=== PATIENT | female | born 1975 | race Caucasian/White ===

== ENCOUNTER 2017-03-02 01:47 | Emergency (ER) | payer MEDICAID ==
[2014-05-21 22:11] VITALS: BMI 22.1
[~2017-03-02 01:47] MED LIST: CATAPRES0.1 MG PO; LEXAPRO20 MG PO; PERCOCET 10/3251 TA1 PO; PRINIVIL20 MG PO; SYNTHROID150 MCG PO; ZYVOX600 MG PO
== END 2017-03-02 03:31 | disposition home or self-care (01) ==
LOC: D.ER 01:47
DX: Z76.0 Encounter for issue of repeat prescription (principal); I10 Essential (primary) hypertension; E07.89 Other specified disorders of thyroid

== ENCOUNTER 2017-07-18 21:00 | Emergency (ER) | payer MEDICAID ==
[2014-05-21 22:11] VITALS: BMI 22.1
[2017-07-18 21:37] LABS: HCG URINE NEGATIVE (NEGATIVE)
[2017-07-18 21:44] LABS: UDS - AMPHET NEGATIVE QUAL (NEGATIVE); UDS - BARB NEGATIVE QUAL (NEGATIVE); UDS - BENZO NEGATIVE QUAL (NEGATIVE); UDS - COCAINE NEGATIVE QUAL (NEGATIVE); UDS - METH NEGATIVE QUAL (NEGATIVE); UDS - OPIATE NEGATIVE QUAL (NEGATIVE); UDS - PCP NEGATIVE QUAL (NEGATIVE); UDS - THC NEGATIVE QUAL (NEGATIVE)
[2017-07-18 21:46] LABS: APPEARANCE HAZY (CLEAR); BILIRUBIN NEGATIVE (NEGATIVE); COLOR YELLOW (YELLOW); GLUCOSE NEGATIVE (NEGATIVE); KETONE NEGATIVE (NEGATIVE); LEUKOCYTE ESTERASE TRACE (NEGATIVE); NITRITE POSITIVE (NEGATIVE); PROTEIN NEGATIVE (NEGATIVE); SPECIFIC GRAVITY 1.015 (1.005-1.020); UROBILINOGEN NORMAL (NORMAL)
[2017-07-18 21:47] LABS: BACTERIA MODERATE /hpf (NONE SEEN); MUCUS <1+ /lpf (NONE SEEN); RED CELLS - URINE OCC /hpf (0-5)
[2017-07-18 22:03] LABS: BASOPHILS 0.1 % (0-2); EOSINOPHILS 0.4 % (0-7); HEMATOCRIT 34.6 % (36.0-48.0); HEMOGLOBIN 11.2 g/dL (12-16); IMMATURE GRANULOCYTES 0.4 % (0-5); LYMPHOCYTES 12.2 % (15-50); MCH 27.9 pg (26.0-34.0); MCHC 32.4 g/dL (31.0-37.0); MCV 86.3 fL (80.0-100.0); MEAN PLATELET VOLUME 8.8 fL (7.4-10.4); MONOCYTES 6.9 % (2-11); RBC 4.01 10x6/uL (4.00-5.40); RDW 17.4 % (11.5-14.5); WBC 15.9 10x3/uL (4.8-10.8)
[2017-07-18 22:06] LABS: PLATELET COUNT 311 10x3/uL (130-400)
[2017-07-18 22:18] LABS: ALBUMIN 3.5 g/dL (3.4-5.0); BILIRUBIN - TOTAL 0.17 mg/dL (0.2-1.3); CALCIUM 8.5 mg/dL (8.5-10.1); CARBON DIOXIDE 27.8 mmol/L (21.0-32.0); CREATININE - SERUM 0.9 mg/dL (0.6-1.3); POTASSIUM - SERUM 3.8 mmol/L (3.5-5.1)
== END 2017-07-19 00:30 | disposition home or self-care (01) ==
LOC: D.ER 21:00
PROVIDERS: Emergency Medicine
DX: E86.0 Dehydration (principal); E16.2 Hypoglycemia, unspecified; I10 Essential (primary) hypertension; F17.200 Nicotine dependence, unspecified, uncomplicated; R53.83 Other fatigue

== ENCOUNTER 2017-11-25 14:59 | Emergency (ER) | payer MEDICAID ==
[2014-05-21 22:11] VITALS: BMI 22.1
== END 2017-11-25 19:24 | disposition home or self-care (01) ==
LOC: D.ER 14:59
DX: R51 Headache (principal); R68.84 Jaw pain; I10 Essential (primary) hypertension

== ENCOUNTER → 2018-10-07 12:59 | Outpatient (CLI) | payer MEDICAID ==
[2014-05-21 22:11] VITALS: BMI 22.1
== END | disposition home or self-care (01) ==
LOC: D.RAD 10:00
DX: M12.521 Traumatic arthropathy, right elbow (principal)

== ENCOUNTER → 2019-10-18 10:08 | Outpatient (CLI) | payer MEDICAID ==
[2014-05-21 22:11] VITALS: BMI 22.1
== END | disposition home or self-care (01) ==
LOC: D.MRI 10-12 10:30
PROVIDERS: ATTEND Clinical Nurse Specialist Family Health
DX: M25.521 Pain in right elbow (principal)

== ENCOUNTER → 2019-10-27 13:46 | Outpatient (CLI) | payer MEDICAID ==
[2014-05-21 22:11] VITALS: BMI 22.1
--- NOTE | 2019-10-27 15:08 | NUR ---
PT WAS APPOINTED FOR AN MRI RT SHOULDER ARTHROGRAM AND TIME OUT WAS PERFORMED AT 1448HRS W DR CHAPPELL
== END | disposition home or self-care (01) ==
LOC: D.RAD 13:46
PROVIDERS: ATTEND Clinical Nurse Specialist Family Health
DX: S43.431A Superior glenoid labrum lesion of right shoulder, initial encounter (principal)

== ENCOUNTER 2019-12-16 06:25 | Day surgery (SDC) | payer OTHER ==
[2019-12-15 08:45] LABS: ANION GAP 11.1 mmol/L (8-16); CALCIUM 9.1 mg/dL (8.5-10.1); CARBON DIOXIDE 28.7 mmol/L (21.0-32.0); CREATININE - SERUM 1.1 mg/dL (0.6-1.3); POTASSIUM - SERUM 3.8 mmol/L (3.5-5.1)
[2019-12-15 09:16] LABS: HEMATOCRIT 42.7 % (36.0-48.0); HEMOGLOBIN 13.9 g/dL (12-16); MCH 29.1 pg (26.0-34.0); MCHC 32.6 g/dL (31.0-37.0); MCV 89.5 fL (80.0-100.0); RBC 4.77 10x6/uL (4.00-5.40); RDW 14.7 % (11.5-14.5); WBC 9.9 10x3/uL (4.8-10.8)
[~2019-12-16] VITALS: Ht 160 cm; Wt 77.1 kg
[~2019-12-16 06:25] MED LIST changes: +LEVOXYL200 MCG PO; +NORVASC5 MG PO; +REGLAN10 MG PO
[2019-12-16] MEDS ORDERED: IBUPROFEN400 MG PO (07:20)
[2019-12-16] MEDS ORDERED: CRESTOR10 MG (07:20)
[2019-12-16 07:38] VITALS: BP 169/109; Ht 160 cm; Wt 77.1 kg
[2019-12-16 07:57] LABS: HCG URINE NEGATIVE (NEGATIVE)
[2019-12-16] MEDS ORDERED: HYDROCODON-ACE1 EA10 PO (09:21)
--- NOTE | 2019-12-16 15:36 | NUR ---
1047 IV DC'D. CATHETER TIP INTACT. NO BLEEDING AT SITE. BANDAID APPLIED. CHANGED SLING TO A SIZE MEDIUM FROM A SMALL THAT WAS ON PT ON ARRIVAL TO 2520. BETTER FIT AND PT IS MORE COMFORTABLE WITH THE LARGER SLING.
--- NOTE | 2019-12-20 08:35 | OP ---
PATIENT NAME: KACY BUCK MEDICAL RECORD: [id number] :77 LOCATION:D.OPS ADMISSION DATE: SURGEON: CRUZ CHAMBERLAIN MD DATE OF OPERATION: 12/16/2019 PREOPERATIVE DIAGNOSES: 1. Right lateral epicondylitis. 2. Right cubital tunnel syndrome. POSTOPERATIVE DIAGNOSES: 1. Right lateral epicondylitis. 2. Right cubital tunnel syndrome. PROCEDURES: 1. Right lateral epicondylectomy with reattachment of the extensor mechanism. 2. Right cubital tunnel release. SURGEON: Cruz Chamberlain MD ANESTHESIA: General. INTRAOPERATIVE COMPLICATIONS: None. SUMMARY OF PATHOLOGIC FINDINGS: The patient had very tight bands around the ulnar nerve consistent with EMG and NCV testing of cubital tunnel syndrome as well as substantial tendinosis of the extensor mechanism with complete disruption of multilayers of the extensor mechanism at the lateral epicondyle. OPERATIVE SUMMARY IN DETAIL: After obtaining the appropriate preoperative orthopedic surgery consent as well as anesthetic consultation, evaluation and clearance, the patient was brought to the operating room and placed on the operating table in supine position. After general laryngeal mask airway was administered, tourniquet was placed about the proximal aspect of the right upper extremity, which was then prepped and draped in routine sterile fashion. At this point, the appropriate timeout was taken and agreed upon by all given the patient's appropriate identifiers. The arm was elevated and exsanguinated, tourniquet inflated to 250 mmHg. Attention was first turned to the cubital tunnel. Incision was made between the medial epicondyle and the tip of the trochanter. Dissection was carried very gently down and the ulnar nerve was identified. Very gentle dissection was carried out about the ulnar nerve to release all the fibrous tissue they were both proximally and medially about the ulnar nerve. It was then freed up in its entirety. It was not transposed. The wound was then copiously irrigated and closed with 4-0 Prolene in running fashion. Attention was then turned to the lateral epicondyle. Incision was made from the tip of the lateral epicondyle, down the arm over the previous incision. This incision was taken down to the lateral epicondyle. The substantial amount of tendinosis was elliptically incised. Care was taken to the subperiosteal, peeled the extensor mechanism off the tip of the lateral condyle, which was then cut with a small sagittal saw to expose good bleeding bone. At this point, a single 3-0 PushLock from [employer] was placed and the FiberWires thusly were used to reapproximate the tendinous insertion back to the edge of the bone. This was then oversewn with a 2-0 FiberWire. It was then copiously irrigated and closed with 2-0 Vicryl followed by running 4-0 Prolene. Sterile dressings were applied. Tourniquet was deflated. The patient was awakened, taken to recovery room in stable condition. All final needle and OPERATIVE REPORT [id number] KACY BUCK sponge counts were correct. TRANSINT:[id number] Voice Confirmation ID: [id number] DOCUMENT ID: [id number] CINTIA ARAGON, CRUZ REYNOLDS at 0835 CC: [id number] DICTATION DATE: 12/17/19 1107 NEWS VIDEO EDITOR: 12/17/19 1540 [facility] 12/16/19 [facility] [address] [place] [address]
== END 2019-12-16 10:49 | disposition home or self-care (01) ==
LOC: D.OPS 06:25 → D.PAN 13:30
PROVIDERS: Anesthesiology; ATTEND Orthopaedic Surgery
DX: M77.11 Lateral epicondylitis, right elbow (principal); G56.21 Lesion of ulnar nerve, right upper limb; M25.521 Pain in right elbow; M19.021 Primary osteoarthritis, right elbow; M25.511 Pain in right shoulder; S43.431A Superior glenoid labrum lesion of right shoulder, initial encounter; X58.XXXA Exposure to other specified factors, initial encounter; G56.01 Carpal tunnel syndrome, right upper limb

== ENCOUNTER 2020-01-10 13:04 | Inpatient (IN) | payer OTHER ==
[~2020-01-10] VITALS: Ht 160 cm; Wt 77.3 kg
[2020-01-10 13:54] LABS: HEMATOCRIT 42.8 % (36.0-48.0); HEMOGLOBIN 14.3 g/dL (12-16); MCH 29.1 pg (26.0-34.0); MCHC 33.4 g/dL (31.0-37.0); MEAN PLATELET VOLUME 8.5 fL (7.4-10.4); RBC 4.92 10x6/uL (4.00-5.40); RDW 13.9 % (11.5-14.5); WBC 11.1 10x3/uL (4.8-10.8)
[2020-01-10 14:04] LABS: HCG SERUM NEGATIVE (NEGATIVE)
[2020-01-10 14:15] VITALS: BP 122/87; BMI 30.1
--- NOTE | 2020-01-10 16:35 | NUR ---
PATIENT STATES PAIN IS 10/10. CONSULTED ANASTHESIA. VERBAL ORDERS FOR 1MG OF IV DILAUDID AND THEN D/C TO OUTPATIENT.
--- NOTE | 2020-01-10 18:46 | NUR ---
REPORT GIVEN TO MED SURG NURSE. WILL TRANSFER PT TO ROOM #4397
--- NOTE | 2020-01-10 18:53 | NUR ---
PT LEFT UNIT VIA WC AT 185
--- NOTE | 2020-01-10 19:01 | NUR ---
PT CAME BACK TO UNIT AT 1858. NEW ROOM NOT READY. WILL CONTINUE TO MONITOR UNTIL TRANSFER
--- NOTE | 2020-01-10 19:23 | NUR ---
ROOM IS CLEAN PER [facility]. PT LEFT UNIT FOR NEW ROOM 2209 VIA WC AT 1925
[2020-01-10 19:26] LABS: ANION GAP 18.1 mmol/L (8-16); CALCIUM 9.9 mg/dL (8.5-10.1); CARBON DIOXIDE 21.8 mmol/L (21.0-32.0); CREATININE - SERUM 1.2 mg/dL (0.6-1.3); POTASSIUM - SERUM 4.9 mmol/L (3.5-5.1)
--- NOTE | 2020-01-10 20:00 | NUR ---
PT ARRIVED TO UNIT VIA WHEELCHAIR. AMBULATED TO BED. RIGHT ARM DRESSING CDI. IV LEFT FA INFUSING 1/2NS @ 50. SET UP PT DILAUDID BISQUE FINISHER. PT STATES PAIN IN RIGHT ARM 07/10. EDUCATED ON BISQUE FINISHER PUMP, VERBALIZED UNDERSTANDING. PT REFUSED TO WEAR SLING. ASSESSMENT AND HISTORY COMLETED AT THIS TIME. DENIES OTHER NEEDS. CL IN REACH, WILL CTM
[2020-01-10 23:22] VITALS: Ht 160 cm; Wt 77.3 kg
[2020-01-11 00:34] VITALS: BP 118/73
[2020-01-11 04:54] VITALS: BP 141/76
[2020-01-11 06:37] LABS: BASOPHILS 0 % (0-2); EOSINOPHILS 0 % (0-7); HEMATOCRIT 36.3 % (36.0-48.0); HEMOGLOBIN 11.6 g/dL (12-16); IMMATURE GRANULOCYTES 0.1 % (0-5); LYMPHOCYTES 16.3 % (15-50); MCH 28.1 pg (26.0-34.0); MCV 87.9 fL (80.0-100.0); MEAN PLATELET VOLUME 8.7 fL (7.4-10.4); MONOCYTES 4.5 % (2-11); NEUTROPHILS 79.1 % (40-80); PLATELET COUNT 472 10x3/uL (130-400); RBC 4.13 10x6/uL (4.00-5.40); RDW 14.2 % (11.5-14.5)
[2020-01-11 06:52] LABS: ANION GAP 13.2 mmol/L (8-16); C-REACTIVE PROTEIN 3.6 mg/dL (0.0-0.9); CALCIUM 8.7 mg/dL (8.5-10.1); CARBON DIOXIDE 22.9 mmol/L (21.0-32.0); CREATININE - SERUM 1.1 mg/dL (0.6-1.3)
[2020-01-11 06:53] LABS: POTASSIUM - SERUM 4.1 mmol/L (3.5-5.1)
--- NOTE | 2020-01-11 06:55 | NUR ---
ALERT AND ORIENTED, RESTING IN BED WITH EYES OPEN. NO C/O PAIN. NO S/S OF ACUTE DISTRESS NOTED. POD #1 I&D RIGHT ELBOW, DRESSING C/D/I. IV TO LEFT FOREARM, 1/2 NS INFUSING @ 50ML/HR. SITE PATENT WITHOUT REDNESS OR SWELLING. DILAUDID SPA CONCIERGE 0.2/09/03, MANAGING PAIN AT THIS TIME. DENIES ANY NEEDS AT THIS TIME. CALL LIGHT IN REACH. WILL CONTINUE TO MONITOR.
[2020-01-11 08:38] LABS: AMYLASE - SERUM 66 U/L (25-115); LIPASE 267 U/L (73-393)
[2020-01-11 09:09] VITALS: BP 148/100
[2020-01-11 09:45] LABS: ERYTHROCYTE SEDIMENTATION RATE 21 mm/hr (0-20)
--- NOTE | 2020-01-11 11:09 | NUR ---
I have reviewed this patient and I concur with the Shift Assessment completed by the Licensed Practical Nurse today this shift.
--- NOTE | 2020-01-11 12:25 | MORECARE ---
CASE MANAGEMENT DISCHARGE SUMMARY PATIENT: KACY BUCK UNIT: [id number] ADM DATE: 01/10/20 AGE: 44 : 77 SEX: F ROOM/BED: D.2205 AUTHOR: DEISI MARTINEZ PHYSICIAN: REFERRING PHYSICIAN: CRUZ CHAMBERLAIN MD DATE OF SERVICE: 01/11/20 Discharge Plan Patient Name: KACY BUCK Facility: [facility]:[place] : 1975 Planned Disposition: Home or Self Care Anticipated Discharge Date: Discharge Date: Expected LOS: Initial Reviewer: [email or web address] Initial Review Date: 01/11/2020 Generated: 01/11/20 1:25 pm Comments DCP- Discharge Planning Updated by [email or web address]: Praveena Pizarro on 01/11/20 11:[address] LATE ENTRY: 01/11/20 @ 0840 Patient Name: KACY BUCK Admission Status: Elective Accout number: [id number] Admission Date: 01-10-2020 : 1975 Admission Diagnosis: Attending: CRUZ CHAMBERLAIN Current LOS: 1 Anticipated DC Date: Planned Disposition: Home or Self Care Primary Insurance: [employer] MANAGED MEDICAID Discharge Planning Comments: CM met with patient to complete initial dc planning assessment. CM educated patient on the CM role and verbal consent given by patient to complete assessment. Patient lives at home with her friend where she is independent with her care. At discharge patient plans to return home and feels this is a safe discharge. CM discussed availability of home health, rehab services, and medical equipment. She stated that she was at [facility] multiple times for pancreatitis. Ginger Martinez will be her emergency medical technician/driver home. SHe may need home health when she is discharged. She does not have a PCP. She did have surgery by Dr Chamberlain on 12/16 via [facility]. Patient denied known discharge needs at this time. CM will continue to follow and will assist as needed with dc plans/needs. Ballistics Laboratory Gunsmith: Praveena Pizarro DCPIA - Discharge Planning Initial Assessment Updated by [email or web address]: Praveena Pizarro on 01/11/20 12:20 pm * Is the patient Alert and Oriented? Yes * PCP none * [facility]acy [facility] * Preadmission Environment Home with Family * ADLs Independent * Equipment None * List name and contact numbers for known caregivers / representatives who currently or will assist patient after discharge: GINGER MARTINEZ [phone] * Verbal permission to speak to the caregivers and representatives has been obtained from the patient. N/A * Community resources currently utilized None * Additional services required to return to the preadmission environment? Yes * Can the patient safely return to the preadmission environment? Yes * Has this patient been hospitalized within the prior 30 days at any hospital? Yes Patient Name: KACY BUCK Page [phone] at 1225 All edits/amendments must be made on the electronic document DICTATION DATE: 01/11/201224 PURCHASER AUTOMOTIVE PARTS: ELLEN 01/11/205 RPT#: [id number] DC DATE: STATUS: ADM IN [facility] [address] [place] [address] END OF REPORT
[2020-01-11 13:08] VITALS: BP 148/91
[2020-01-11 16:45] VITALS: BP 157/80
--- NOTE | 2020-01-11 18:38 | NUR ---
ALERT AND ORIENTED, RESTING IN BED WITH EYES OPEN. NO C/O PAIN. NO S/S OF ACUTE DISTRESS NOTED. DENIES ANY NEEDS AT THIS TIME. CALL LIGHT IN REACH. WILL CONTINUE TO MONITOR.
--- NOTE | 2020-01-11 19:30 | NUR ---
PT SITTING UP IN BED WITHOUT DISTRESS, AOX4. IV LEFT FA INFUSING 1/2NS @ 50 WITH DILAUDID NON MORSE INTERCEPT TECHNICIAN FOR PAIN CONTROL. PT AMBULATING WITHOUT DIFFICULTY. RIGHT FA DRESSING CDI. DOES NOT WANT TO WEAR SLING. DENIES NEEDS. CL IN REACH, WILL CTM
[2020-01-11 20:23] VITALS: BP 159/77
--- NOTE | 2020-01-11 22:30 | NUR ---
PT STATES SHE IS ITCHY, REQUESTED AND GIVEN BENADRYL. NO OTHER NEEDS AT THIS TIME. CL IN REACH, WILL CTM
[2020-01-12 01:00] VITALS: BP 147/71
[2020-01-12 04:41] VITALS: BP 132/76
[2020-01-12 05:50] LABS: BASOPHILS 0.2 % (0-2); EOSINOPHILS 0 % (0-7); HEMOGLOBIN 11.1 g/dL (12-16); IMMATURE GRANULOCYTES 0.3 % (0-5); LYMPHOCYTES 44.5 % (15-50); MCH 28.3 pg (26.0-34.0); MCHC 31.7 g/dL (31.0-37.0); MCV 89.3 fL (80.0-100.0); MEAN PLATELET VOLUME 8.5 fL (7.4-10.4); MONOCYTES 6.2 % (2-11); NEUTROPHILS 48.8 % (40-80); PLATELET COUNT 435 10x3/uL (130-400); RBC 3.92 10x6/uL (4.00-5.40); RDW 14.4 % (11.5-14.5); WBC 9.1 10x3/uL (4.8-10.8)
[2020-01-12 06:21] LABS: CALCIUM 8.5 mg/dL (8.5-10.1); CARBON DIOXIDE 25.5 mmol/L (21.0-32.0); CHLORIDE - SERUM 107 mmol/L (98-107); POTASSIUM - SERUM 3.7 mmol/L (3.5-5.1); SODIUM 139 mmol/L (136-145); eGFR NON AFRICAN AMERICAN 83 mL/min (90-120)
[2020-01-12 06:42] LABS: CALC OSMOLALITY 277 mosm/kg (275-300); CREATININE - SERUM 0.8 mg/dL (0.6-1.3); GLUCOSE 107 mg/dL (74-106); UREA NITROGEN 13 mg/dL (7-18)
--- NOTE | 2020-01-12 07:15 | NUR ---
AM ROUNDS COMPLETED. SHIFT ASSESSMENT PERFORMED. PT IS A&O SITTING UP IN BED RESTING QUIETLY. PT STATES SHE HAD A GOOD NIGHT OVERALL AND DENIES ANY CURRENT PAIN OR NEEDS. WILL CHECK CHART AND ORDERS AND CPOC.
[2020-01-12 08:02] VITALS: BP 117/69
--- NOTE | 2020-01-12 09:25 | NUR ---
PTS CASING TRIMMER IS EMPTY. CHANGED OUT SYRINGE AND PT REQUESTED AND WAS PROVIDED WITH BOLUS DOSE. PT VOICED THANKS. QUILL WINDER AT BEDSIDE TO ASSESS AND PROVIDE MEDICATIONS. PT DENIES ANY CURRENT NEEDS FROM ME AT THIS TIME. CL IN REACH, BED IN LOWEST, SIDE RAILS X2. WILL CTM.
--- NOTE | 2020-01-12 12:36 | NUR ---
PT SUPPOSED TO BE HAVING AN ELBOW DRSG CHANGE TODAY, WAITING ON ORDERS. HOWEVER PT STATES SHE IS REALLY NERVOUS AND WANTS "KNOCKED OUT FIRST" EXPLAINED TO HER WE CAN DISCUSS WITH ORTHO TEAM AND SEE ABOUT A ONE TIME MEDICATION PRIOR TO DRSG CHANGE. PT VOICED THANKS. NO CURRENT NEEDS. WILL CTM.
[2020-01-12 13:25] VITALS: BP 114/83
--- NOTE | 2020-01-12 14:30 | NUR ---
PT STILL DOESNT HAVE HER URINE SAMPLE STATES SHE VOIDED AGAIN AND FORGOT AND WILL PROVIDE ON NEXT VOID.
--- NOTE | 2020-01-12 16:57 | NUR ---
PTS LAMINATION ASSEMBLER EMPTY AGAIN. NEW SYRINGE PROVIDED ALONG WITH BOLUS DOSE REQUESTED. PT ALSO WAS VERY NERVOUS ABOUT DRSG CHANGE AND DEMANDED PRN NORCO BECAUSE SHE STATES SHE CANT HANDLE IT. UPON DRSG CHANGE NOTED THAT HER R.ELBOW WAS ACTUALLY SUTURED CLOSED AND DIDNT EVEN NEED PACKED. INCISION SITE WAS DRAINING YELLOWISH CLEAR FLUID. CLEANSED WITH BETADINE AND THEN APPLIED GUAZE AND WRAPPED WITH KERLIX AND BECKY BANDAGE. UPON CHANGING DRSG PT ACTUALLY STATED "IT DOESNT EVEN HURT AT ALL" PT VOICED THANKS AND DENIES ANY FURTHER NEEDS AT THIS TIME. CL IN REACH, BED IN LOWEST, SIDE RAILS X2. WILL CTM.
[2020-01-12 17:56] VITALS: BP 134/83
--- NOTE | 2020-01-12 20:02 | NUR ---
NO URINE SPECIMEN COLLECTED PT CONTINUOUSLY STATES "I KEEP FORGETTING ABOUT IT" WILL PASS ON IN SHIFT REPORT.
[2020-01-12 20:50] VITALS: BP 114/56
--- NOTE | 2020-01-12 22:15 | NUR ---
LYING IN BED. DROWSY. ORIENTED X4. COMMERCIAL ROOFER DILAUDID IN USE WITH 1/2 NS @ 50 MLHR INFUSING IN LT FOREARM.DRSG NOTED TO RT ELBOW. C/O PAIN 5. AMBULATORY. INFORMED OF NEED FOR URINE SPECIMEN. NO DISTRESS. RESP NONLABORED. CL IN REACH.
[2020-01-13 00:45] VITALS: BP 96/50
--- NOTE | 2020-01-13 01:12 | NUR ---
IV LEAKING. IV CATH REMOVED FROM LT FOREARM. PT FRANDY WELL. PT HAS FAILED TO GIVE URINE SPECIMEN AND STATES, "I ONLY URINATE ONCE A DAY." INFORMED PT THAT WE WOULD NEED TO DO AN I/O CATH FOR SPECIMEN AND SHE STATES, "I'LL PEE IN THE CUP"
--- NOTE | 2020-01-13 01:48 | NUR ---
REQUESTS BENADRYL FOR C/O ITCHING.
[2020-01-13 04:40] VITALS: BP 146/69
[2020-01-13 06:57] LABS: UDS - AMPHET NEGATIVE QUAL (NEGATIVE); UDS - BARB NEGATIVE QUAL (NEGATIVE); UDS - BENZO NEGATIVE QUAL (NEGATIVE); UDS - COCAINE NEGATIVE QUAL (NEGATIVE); UDS - OPIATE POSITIVE QUAL (NEGATIVE); UDS - PCP NEGATIVE QUAL (NEGATIVE); UDS - THC NEGATIVE QUAL (NEGATIVE)
--- NOTE | 2020-01-13 07:15 | NUR ---
REC'D IN BED AWAKE AND ALERT. RESP EVEN AND UNLABORED WITH NO DISTRESS NOTED. CAN EXPRESS NEEDS AND WANTS. NO C/O NOTED OR VOICED. ASSESSMENT COMPLETED. C/L IN REACH AT BEDSIDE.
[2020-01-13 07:43] LABS: BILIRUBIN NEGATIVE (NEGATIVE); GLUCOSE NEGATIVE (NEGATIVE); KETONE NEGATIVE (NEGATIVE); NITRITE NEGATIVE (NEGATIVE); UROBILINOGEN NORMAL (NORMAL)
[2020-01-13 07:46] LABS: BASOPHILS 0.2 % (0-2); EOSINOPHILS 0 % (0-7); HEMATOCRIT 36.6 % (36.0-48.0); HEMOGLOBIN 11.5 g/dL (12-16); IMMATURE GRANULOCYTES 0.2 % (0-5); LYMPHOCYTES 34.5 % (15-50); MCH 28.1 pg (26.0-34.0); MCHC 31.4 g/dL (31.0-37.0); MCV 89.5 fL (80.0-100.0); MEAN PLATELET VOLUME 8.5 fL (7.4-10.4); MONOCYTES 8.4 % (2-11); NEUTROPHILS 56.7 % (40-80); PLATELET COUNT 425 10x3/uL (130-400); RBC 4.09 10x6/uL (4.00-5.40); RDW 14.2 % (11.5-14.5); WBC 9.8 10x3/uL (4.8-10.8)
[2020-01-13 07:52] LABS: CALC OSMOLALITY 277 mosm/kg (275-300); CALCIUM 8.5 mg/dL (8.5-10.1); CHLORIDE - SERUM 105 mmol/L (98-107); CREATININE - SERUM 0.7 mg/dL (0.6-1.3); GLUCOSE 90 mg/dL (74-106); POTASSIUM - SERUM 3.8 mmol/L (3.5-5.1); SODIUM 140 mmol/L (136-145); VANCOMYCIN - TROUGH 23.4 ug/mL (10.0-20.0); eGFR NON AFRICAN AMERICAN > 90 mL/min (90-120)
[2020-01-13 07:55] LABS: UREA NITROGEN 9 mg/dL (7-18)
[2020-01-13 08:47] VITALS: BP 158/88
--- NOTE | 2020-01-13 09:24 | MORECARE ---
CASE MANAGEMENT DISCHARGE SUMMARY PATIENT: KACY BUCK UNIT: [id number] ADM DATE: 01/10/20 AGE: 44 : 77 SEX: F ROOM/BED: D.2203 AUTHOR: MICHELLE,DOC PHYSICIAN: REFERRING PHYSICIAN: CRUZ CHAMBERLAIN MD DATE OF SERVICE: 01/13/20 Discharge Plan Patient Name: KACY BUCK Facility: [facility]:[place] : 1975 Planned Disposition: Home or Self Care Anticipated Discharge Date: Discharge Date: Expected LOS: Initial Reviewer: [email or web address] Initial Review Date: 01/11/2020 Generated: 01/13/20 10:23 am DCP- Discharge Planning Updated by [email or web address]: Praveena Pizarro on 01/11/20 11:[address] LATE ENTRY: 01/11/20 @ 0840 Patient Name: KACY BUCK Admission Status: Elective Accout number: [id number] Admission Date: 01-10-2020 : 1975 Admission Diagnosis: Attending: CRUZ CHAMBERLAIN Current LOS: 1 Anticipated DC Date: Planned Disposition: Home or Self Care Primary Insurance: [employer] MANAGED MEDICAID Discharge Planning Comments: CM met with patient to complete initial dc planning assessment. CM educated patient on the CM role and verbal consent given by patient to complete assessment. Patient lives at home with her friend where she is independent with her care. At discharge patient plans to return home and feels this is a safe discharge. CM discussed availability of home health, rehab services, and medical equipment. She stated that she was at [facility] multiple times for pancreatitis. Ginger Martinez will be her package car driver home. SHe may need home health when she is discharged. She does not have a PCP. She did have surgery by Dr Chamberlain on 12/16 via [facility]. Patient denied known discharge needs at this time. CM will continue to follow and will assist as needed with dc plans/needs. Child Welfare Worker: Praveena Pizarro DCPIA - Discharge Planning Initial Assessment Updated by [email or web address]: Praveena Pizarro on 01/11/20 12:20 pm * Is the patient Alert and Oriented? Yes * PCP none * Pharmacy [facility] [address] * Preadmission Environment Home with Family * ADLs Independent * Equipment None * List name and contact numbers for known caregivers / representatives who currently or will assist patient after discharge: GINGER MARTINEZ [phone] * Verbal permission to speak to the caregivers and representatives has been obtained from the patient. N/A * Community resources currently utilized None * Additional services required to return to the preadmission environment? Yes * Can the patient safely return to the preadmission environment? Yes * Has this patient been hospitalized within the prior 30 days at any hospital? Yes External Providers External Provider: [facility] Next Contact Date: Service Request Date: Service Type: Resolution: Reviewer: Comments: External Provider: [facility] Next Contact Date: Service Request Date: Service Type: Resolution: Reviewer: Comments: [facility] Next Contact Date: Service Request Date: Service Type: Resolution: Reviewer: Comments: Last DP export: 01/11/20 11:25 a Patient Name: KACY BUCK Page 18565 at 0924 All edits/amendments must be made on the electronic document DICTATION DATE: 01/13/20922 INSIDE PHONE SALES: ELLEN 01/13/20922 RPT#: [id number] DC DATE: STATUS: ADM IN [facility] [address] [place] [address] END OF REPORT
--- NOTE | 2020-01-13 09:31 | MORECARE ---
CASE MANAGEMENT DISCHARGE SUMMARY PATIENT: KACY BUCK UNIT: [id number] ADM DATE: 01/10/20 AGE: 44 : 77 SEX: F ROOM/BED: D.2209 AUTHOR: MICHELLE,DOC PHYSICIAN: REFERRING PHYSICIAN: CRUZ CHAMBERLAIN MD DATE OF SERVICE: 01/13/20 Discharge Plan Patient Name: KACY BUCK Facility: [facility]:[place] : 1975 Planned Disposition: Home or Self Care Anticipated Discharge Date: Discharge Date: Expected LOS: Initial Reviewer: [email or web address] Initial Review Date: 01/11/2020 Generated: 01/13/20 10:30 am Comments DCP- Discharge Planning Updated by [email or web address]: Praveena Pizarro on 01/13/20 8:[address] PATIENT WILL BE GOING TO [address] [place] [address] PATIENTS # [phone] HER BOYFRIEND # IS [phone] DCP- Discharge Planning Updated by [email or web address]: Praveena Pizarro on 01/13/20 8:[address] SPOKE WITH PATIENT WITH ABOUT IV ABX. SHE DID NOT CARE OF WHICH HOME HEALTH OR INFUSION COMPANY SHE USED LONG THEY TOOK HER INSURANCE. ARASH SIGNED, I HAVE SENT A REFERRAL TO [facility] FOR PRICES AND TO CARE IV TO SEE IF THEY COULD ACCEPT THE PATIENT AND HER INSURANCE. CM WILL CONTINUE TO FOLLOW AND ASSIST WITH DC PLANNING NEEDED DCP- Discharge Planning Updated by [email or web address]: Praveena Pizarro on 01/11/20 11:[address] LATE ENTRY: 01/11/20 @ 0840 Patient Name: KACY BUCK Admission Status: Elective Accout number: [id number] Admission Date: 01-10-2020 : 1975 Admission Diagnosis: Attending: CRUZ CHAMBERLAIN Current LOS: 1 Anticipated DC Date: Planned Disposition: Home or Self Care Primary Insurance: [employer] MANAGED MEDICAID Discharge Planning Comments: CM met with patient to complete initial dc planning assessment. CM educated patient on the CM role and verbal consent given by patient to complete assessment. Patient lives at home with her friend where she is independent with her care. At discharge patient plans to return home and feels this is a safe discharge. CM discussed availability of home health, rehab services, and medical equipment. She stated that she was at [facility] multiple times for pancreatitis. Ginger Martinez will be her gas truck driver home. SHe may need home health when she is discharged. She does not have a PCP. She did have surgery by Dr Chamberlain on 12/16 via [facility]. Patient denied known discharge needs at this time. CM will continue to follow and will assist as needed with dc plans/needs. Computing Services Director: Praveena Pizarro DCPIA - Discharge Planning Initial Assessment Updated by [email or web address]: Praveena Pizarro on 01/11/20 12:20 pm * Is the patient Alert and Oriented? Yes * PCP none * Pharmacy [facility] * Preadmission Environment Home with Family * ADLs Independent * Equipment None * List name and contact numbers for known caregivers / representatives who currently or will assist patient after discharge: GINGER MARTINEZ [phone] * Verbal permission to speak to the caregivers and representatives has been obtained from the patient. N/A * Community resources currently utilized None * Additional services required to return to the preadmission environment? Yes * Can the patient safely return to the preadmission environment? Yes * Has this patient been hospitalized within the prior 30 days at any hospital? Yes Last DP export: 01/13/20 8:24 a Patient Name: KACY BUCK Page [phone] at 0931 All edits/amendments must be made on the electronic document DICTATION DATE: 01/13/20929 KILN CLEANER: ELLEN 01/13/20929 RPT#: [id number] DC DATE: STATUS: ADM IN [facility] [address] [place] [address] END OF REPORT
--- NOTE | 2020-01-13 11:23 | MORECARE ---
CASE MANAGEMENT DISCHARGE SUMMARY PATIENT: KACY BUCK UNIT: [id number] ADM DATE: 01/10/20 AGE: 44 : 77 SEX: F ROOM/BED: D.2209 AUTHOR: MICHELLE,DOC PHYSICIAN: REFERRING PHYSICIAN: CRUZ CHAMBERLAIN MD DATE OF SERVICE: 01/13/20 Discharge Plan Patient Name: KACY BUCK Facility: [facility]:[place] : 1975 Planned Disposition: Home or Self Care Anticipated Discharge Date: Discharge Date: Expected LOS: Initial Reviewer: [email or web address] Initial Review Date: 01/11/2020 Generated: 01/13/20 12:23 pm Comments DCP- Discharge Planning Updated by [email or web address]: Praveena Pizarro on 01/13/20 10:[address] [employer] WILL BE THE INFUSION COMPANY, SHE IS COVERED 100% AND WILL HAVE THE MED [facility] CARE IV IS OUT OF NETWORK, [facility] IS FULL, I HAVE SENT THE CLINICAL TO [facility] AND THEY CAN ACCEPT HER AND WILL START OF CARE TOMORROW LONG INSURANCE IS OK DCP- Discharge Planning Updated by [email or web address]: Praveena Pizarro on 01/13/20 8:[address] PATIENT WILL BE GOING TO [address] [place] [address] PATIENTS # [phone] HER BOYFRIEND # IS [phone] DCP- Discharge Planning Updated by [email or web address]: Praveena Pizarro on 01/13/20 8:[address] SPOKE WITH PATIENT WITH ABOUT IV ABX. SHE DID NOT CARE OF WHICH HOME HEALTH OR INFUSION COMPANY SHE USED LONG THEY TOOK HER INSURANCE. ARASH SIGNED, I HAVE SENT A REFERRAL TO [facility] [employer] [facility] FOR PRICES AND TO CARE IV TO SEE IF THEY COULD ACCEPT THE PATIENT AND HER INSURANCE. CM WILL CONTINUE TO FOLLOW AND ASSIST WITH DC PLANNING NEEDED DCP- Discharge Planning Updated by [email or web address]: Praveena Pizarro on 01/11/20 11:[address] LATE ENTRY: 01/11/20 @ 0840 Patient Name: KACY BUCK Admission Status: Elective Accout number: [id number] Admission Date: 01-10-2020 : 1975 Admission Diagnosis: Attending: CRUZ CHAMBERLAIN Current LOS: 1 Anticipated DC Date: Planned Disposition: Home or Self Care Primary Insurance: [employer] MANAGED MEDICAID Discharge Planning Comments: CM met with patient to complete initial dc planning assessment. CM educated patient on the CM role and verbal consent given by patient to complete assessment. Patient lives at home with her friend where she is independent with her care. At discharge patient plans to return home and feels this is a safe discharge. CM discussed availability of home health, rehab services, and medical equipment. She stated that she was at [facility] multiple times for pancreatitis. Ginger Martinez will be her water tanker driver home. SHe may need home health when she is discharged. She does not have a PCP. She did have surgery by Dr Chamberlain on 12/16 via [facility]. Patient denied known discharge needs at this time. CM will continue to follow and will assist as needed with dc plans/needs. Rolls Baker: Praveena Pizarro DCPIA - Discharge Planning Initial Assessment Updated by [email or web address]: Praveena Pizarro on 01/11/20 12:20 pm * Is the patient Alert and Oriented? Yes * PCP none * Pharmacy [facility] [address] * Preadmission Environment Home with Family * ADLs Independent * Equipment None * List name and contact numbers for known caregivers / representatives who currently or will assist patient after discharge: GINGER MARTINEZ [phone] * Verbal permission to speak to the caregivers and representatives has been obtained from the patient. N/A * Community resources currently utilized None * Additional services required to return to the preadmission environment? Yes * Can the patient safely return to the preadmission environment? Yes * Has this patient been hospitalized within the prior 30 days at any hospital? Yes External Providers External Provider: [facility] Next Contact Date: Service Request Date: Service Type: Resolution: Reviewer: Comments: Last DP export: 01/13/20 8:31 a Patient Name: KACY BUCK Page [phone] at 1123 All edits/amendments must be made on the electronic document DICTATION DATE: 01/13/20 112 LEAD SYSTEMS ARCHITECT: ELLEN 01/13/20 1123 RPT#: [id number] DC DATE: STATUS: ADM IN [facility] [address] [place] [place] [address] END OF REPORT
--- NOTE | 2020-01-13 13:18 | MORECARE ---
CASE MANAGEMENT DISCHARGE SUMMARY PATIENT: KACY BUCK UNIT: [id number] ADM DATE: 01/10/20 AGE: 44 : [birth year] SEX: F ROOM/BED: D.2209 AUTHOR: MICHELLE,DOC PHYSICIAN: REFERRING PHYSICIAN: CRUZ CHAMBERLAIN MD DATE OF SERVICE: 01/13/20 Discharge Plan Patient Name: KACY BUCK Facility: [facility]:[place] : 1975 Planned Disposition: Home or Self Care Anticipated Discharge Date: Discharge Date: Expected LOS: Initial Reviewer: [email or web address] Initial Review Date: 01/11/2020 Generated: 01/13/20 2:18 pm Comments DCP- Discharge Planning Updated by [email or web address]: Praveena Pizarro on 01/13/20 12:[address] [place] HERE TO TEACH PATIENT AND HER BOYFRIEND. THEY BOTH STATE UNDERSTANDING, [employer] WILL DELIVER THE MEDICINE TO THEIR HOME [facility] WILL BE ACCEPT HIM AND START OF CARE TOMORROW DCP- Discharge Planning Updated by [email or web address]: Praveena Pizarro on 01/13/20 10:[address] [employer] WILL BE THE INFUSION COMPANY, SHE IS COVERED 100% AND WILL HAVE THE MED BALLS CARE IV IS OUT OF NETWORK, [facility] IS FULL, I HAVE SENT THE CLINICAL TO [facility] AND THEY CAN ACCEPT HER AND WILL START OF CARE TOMORROW LONG INSURANCE IS OK DCP- Discharge Planning Updated by [email or web address]: Praveena Pizarro on 01/13/20 8:[address] PATIENT WILL BE GOING TO [address] [place] [address] PATIENTS # [phone] HER BOYFRIEND # IS [phone] DCP- Discharge Planning Updated by [email or web address]: Praveena Pizarro on 01/13/20 8:[address] SPOKE WITH PATIENT WITH ABOUT IV ABX. SHE DID NOT CARE OF WHICH HOME HEALTH OR INFUSION COMPANY SHE USED LONG THEY TOOK HER INSURANCE. ARASH SIGNED, I HAVE SENT A REFERRAL TO [facility] FOR PRICES AND TO CARE IV TO SEE IF THEY COULD ACCEPT THE PATIENT AND HER INSURANCE. CM WILL CONTINUE TO FOLLOW AND ASSIST WITH DC PLANNING NEEDED DCP- Discharge Planning Updated by [email or web address]: Praveena Pizarro on 01/11/20 11:[address] LATE ENTRY: 01/11/20 @ 0840 Patient Name: KACY BUCK Admission Status: Elective Accout number: [id number] Admission Date: 01-10-2020 : 1975 Admission Diagnosis: Attending: CRUZ CHAMBERLAIN Current LOS: 1 Anticipated DC Date: Planned Disposition: Home or Self Care Primary Insurance: [employer] MANAGED MEDICAID Discharge Planning Comments: CM met with patient to complete initial dc planning assessment. CM educated patient on the CM role and verbal consent given by patient to complete assessment. Patient lives at home with her friend where she is independent with her care. At discharge patient plans to return home and feels this is a safe discharge. CM discussed availability of home health, rehab services, and medical equipment. She stated that she was at [facility] multiple times for pancreatitis. Ginger Martinez will be her local delivery driver home. SHe may need home health when she is discharged. She does not have a PCP. She did have surgery by Dr Chamberlain on 12/16 via [facility]. Patient denied known discharge needs at this time. CM will continue to follow and will assist as needed with dc plans/needs. Cut Tobacco Bulker: Praveena Pizarro DCPIA - Discharge Planning Initial Assessment Updated by [email or web address]: Praveena Pizarro on 01/11/20 12:20 pm * Is the patient Alert and Oriented? Yes * PCP none * Pharmacy [facility] [address] * Preadmission Environment Home with Family * ADLs Independent * Equipment None * List name and contact numbers for known caregivers / representatives who currently or will assist patient after discharge: GINGER MARTINEZ [phone] * Verbal permission to speak to the caregivers and representatives has been obtained from the patient. N/A * Community resources currently utilized None * Additional services required to return to the preadmission environment? Yes * Can the patient safely return to the preadmission environment? Yes * Has this patient been hospitalized within the prior 30 days at any hospital? Yes Last DP export: 01/13/20 10:24 a Patient Name: KACY BUCK Page [id number] at 1318 All edits/amendments must be made on the electronic document DICTATION DATE: 01/13/201317 IT SYSTEMS ADMINISTRATOR: ELLEN 01/13/201317 RPT#: [id number] DC DATE: STATUS: ADM IN [facility] [address] [place] [address] END OF REPORT
--- NOTE | 2020-01-13 13:25 | NUR ---
I have reviewed this patient and I concur with the Shift Assessment completed by the Licensed Practical Nurse today this shift.
--- NOTE | 2020-01-13 14:29 | MORECARE ---
CASE MANAGEMENT DISCHARGE SUMMARY PATIENT: KACY BUCK UNIT: [id number] ADM DATE: 01/10/20 AGE: 44 : 77 SEX: F ROOM/BED: D.2209 AUTHOR: MICHELLE,DOC PHYSICIAN: REFERRING PHYSICIAN: CRUZ CHAMBERLAIN MD DATE OF SERVICE: 01/13/20 Discharge Plan Patient Name: KACY BUCK Facility: [facility]:[place] : 1975 Planned Disposition: Home or Self Care Anticipated Discharge Date: Discharge Date: Expected LOS: Initial Reviewer: [email or web address] Initial Review Date: 01/11/2020 Generated: 01/13/20 3:29 pm Comments DCP- Discharge Planning Updated by [email or web address]: Praveena Pizarro on 01/13/20 1:[address] PATIENT TO BE DISCHARGED HOME TODAY WITH [facility] AND [employer] IV ABX DCP- Discharge Planning Updated by [email or web address]: Praveena Pizarro on 01/13/20 12:[address] [place] HERE TO TEACH PATIENT AND HER BOYFRIEND. THEY BOTH STATE UNDERSTANDING, [email or web address] WILL DELIVER THE MEDICINE TO THEIR HOME [facility] WILL BE ACCEPT HIM AND START OF CARE TOMORROW DCP- Discharge Planning Updated by [email or web address]: Praveena Pizarro on 01/13/20 10:[address] [employer] WILL BE THE INFUSION COMPANY, SHE IS COVERED 100% AND WILL HAVE THE MED BALLS CARE IV IS OUT OF NETWORK, [facility] IS FULL, I HAVE SENT THE CLINICAL TO [facility] AND THEY CAN ACCEPT HER AND WILL START OF CARE TOMORROW LONG INSURANCE IS OK DCP- Discharge Planning Updated by [email or web address]: Praveena Pizarro on 01/13/20 8:[address] PATIENT WILL BE GOING TO [address] [place] [address] PATIENTS # [phone] HER BOYFRIEND # IS [phone] DCP- Discharge Planning Updated by [id number]: Praveena Pizarro on 01/13/20 8:[address] SPOKE WITH PATIENT WITH ABOUT IV ABX. SHE DID NOT CARE OF WHICH HOME HEALTH OR INFUSION COMPANY SHE USED LONG THEY TOOK HER INSURANCE. ARASH SIGNED, I HAVE SENT A REFERRAL TO [facility] FOR PRICES AND TO [facility] TO SEE IF THEY COULD ACCEPT THE PATIENT AND HER INSURANCE. CM WILL CONTINUE TO FOLLOW AND ASSIST WITH DC PLANNING NEEDED DCP- Discharge Planning Updated by [email or web address]: Praveena Pizarro on 01/11/20 11:[address] LATE ENTRY: 01/11/20 @ 0840 Patient Name: KACY BUCK Admission Status: Elective Accout number: [id number] Admission Date: 01-10-2020 : 1975 Admission Diagnosis: Attending: CRUZ CHAMBERLAIN Current LOS: 1 Anticipated DC Date: Planned Disposition: Home or Self Care Primary Insurance: [employer] MANAGED MEDICAID Discharge Planning Comments: CM met with patient to complete initial dc planning assessment. CM educated patient on the CM role and verbal consent given by patient to complete assessment. Patient lives at home with her friend where she is independent with her care. At discharge patient plans to return home and feels this is a safe discharge. CM discussed availability of home health, rehab services, and medical equipment. She stated that she was at [facility] multiple times for pancreatitis. Ginger Martinez will be her oil transport driver home. SHe may need home health when she is discharged. She does not have a PCP. She did have surgery by Dr Chamberlain on 12/16 via [facility]. Patient denied known discharge needs at this time. CM will continue to follow and will assist as needed with dc plans/needs. Clinic Manager: Praveena Pizarro DCPIA - Discharge Planning Initial Assessment Updated by [email or web address]: Praveena Pizarro on 01/11/20 12:20 pm * Is the patient Alert and Oriented? Yes * PCP none * Pharmacy [email or web address] [address] * Preadmission Environment Home with Family * ADLs Independent * Equipment None * List name and contact numbers for known caregivers / representatives who currently or will assist patient after discharge: GINGER MARTINEZ [phone] * Verbal permission to speak to the caregivers and representatives has been obtained from the patient. N/A * Community resources currently utilized None * Additional services required to return to the preadmission environment? Yes * Can the patient safely return to the preadmission environment? Yes * Has this patient been hospitalized within the prior 30 days at any hospital? Yes Last DP export: 01/13/20 12:18 p Patient Name: KACY BUCK Page 49813 at 1429 All edits/amendments must be made on the electronic document DICTATION DATE: 01/13/201428 ROLLER BILLET MILL: ELLEN 01/13/201428 RPT#: [id number] DC DATE: STATUS: ADM IN [facility] [address] [place] [address] END OF REPORT
--- NOTE | 2020-01-13 14:47 | NUR ---
DC HOME AT THIS TIME VOICE UNDERSTANDING OF DC ORDERS GIVEN VIA C. LOVE MACHINE GUN MECHANIC. IV DC AT THIS TIME. NO C/O NOTED OR VOICED. C/L IN REACH AT BEDSIDE.
--- NOTE | 2020-01-13 14:56 | OP ---
PATIENT NAME: KACY BUCK MEDICAL RECORD: [id number] :[birth year] LOCATION:[address].MS [address] ADMISSION DATE:01/10/20 SURGEON: CRUZ CHAMBERLAIN MD DATE OF OPERATION: 01/10/2020 PREOPERATIVE DIAGNOSIS: Infected right elbow status post lateral epicondylectomy. POSTOPERATIVE DIAGNOSIS: Infected right elbow status post lateral epicondylectomy. PROCEDURE: Excisional debridement of the right elbow. INDICATIONS: This 44-year-old female had operative intervention at our facility. Unfortunately, directly after that she was admitted to another facility where she was held for several days for pancreatitis. She said during her hospital stay, her elbow became red and inflamed. Cultures taken prior to this operative intervention have grown out methicillin-resistant Staphylococcus aureus. OPERATIVE SUMMARY IN DETAIL: After obtaining the appropriate preoperative orthopedic surgery consent as well as anesthetic consultation, evaluation, and clearance, the patient was brought to the operating room and placed on the operating room table in supine position. After adequate general laryngeal mask airway was administered, a tourniquet was placed about the proximal aspect of the right upper extremity. Right upper extremity was then prepped and draped in routine sterile fashion. Please note that the tourniquet was not inflated. Dissection was carried down to the joint, which was clearly open, this being septic arthritis of the right elbow. Copious I&D was carried out followed by taking both regular cultures and DNA cultures prior all tissue nonviable appearing was debrided with a combination of scalpel, rongeur and curettage. The previously placed epicondylectomy was also debrided with a curette. Having completed this capsular closure was completed with #1 Vicryl. This was then followed by 2-0 Vicryl and 4-0 Prolene in running fashion. Sterile dressings were applied. The patient was awakened and taken to the recovery room in stable condition. All final needle and sponge counts were correct. TRANSINT:[id number] Voice Confirmation ID: [id number] DOCUMENT ID: [id number] CRUZ CHAMBERLAIN MD at 1456 CC: [id number] DICTATION DATE: 01/13/20 1047 MANAGER INPATIENT: 01/13/20 1258 DIS IN 01/13/20 [id number] [place] [address]
--- NOTE | 2020-01-16 18:32 | MORECARE ---
CASE MANAGEMENT DISCHARGE SUMMARY PATIENT: KACY BUCK UNIT: [id number] ADM DATE: 01/10/20 AGE: 44 : 77 SEX: F ROOM/BED: D.2209 AUTHOR: MICHELLE,DOC PHYSICIAN: REFERRING PHYSICIAN: CRUZ CHAMBERLAIN MD DATE OF SERVICE: 01/16/20 Discharge Plan Patient Name: KACY BUCK Facility: [facility]:[place] : 1975 Planned Disposition: Home or Self Care Anticipated Discharge Date: Discharge Date: 01/13/2020 Expected LOS: Initial Reviewer: [email or web address] Initial Review Date: 01/11/2020 Generated: 01/16/20 7:32 pm Comments DCP- Discharge Planning Updated by [email or web address]: Praveena Pizarro on 01/13/20 1:[address] PATIENT TO BE DISCHARGED HOME TODAY WITH [facility] AND [facility] IV ABX DCP- Discharge Planning Updated by [email or web address]: Praveena Pizarro on 01/13/20 12:[address] [place] HERE TO TEACH PATIENT AND HER BOYFRIEND. THEY BOTH STATE UNDERSTANDING, [facility] WILL DELIVER THE MEDICINE TO THEIR HOME [facility] WILL BE ACCEPT HIM AND START OF CARE TOMORROW DCP- Discharge Planning Updated by [email or web address]: Praveena Pizarro on 01/13/20 10:[address] [facility] [employer] WILL BE THE INFUSION COMPANY, SHE IS COVERED 100% AND WILL HAVE THE MED BALLS CARE IV IS OUT OF NETWORK, [facility] IS FULL, I HAVE SENT THE CLINICAL TO [facility] AND THEY CAN ACCEPT HER AND WILL START OF CARE TOMORROW LONG INSURANCE IS OK DCP- Discharge Planning Updated by [email or web address]: Praveena Pizarro on 01/13/20 8:[address] PATIENT WILL BE GOING TO [address] [place] [address] PATIENTS # [phone] HER BOYFRIEND # IS [phone] DCP- Discharge Planning Updated by [email or web address]: Praveena Pizarro on 01/13/20 8:[address] SPOKE WITH PATIENT WITH ABOUT IV ABX. SHE DID NOT CARE OF WHICH HOME HEALTH OR INFUSION COMPANY SHE USED LONG THEY TOOK HER INSURANCE. ARASH SIGNED, I HAVE SENT A REFERRAL TO [facility] FOR [facility] AND TO CARE IV TO SEE IF THEY COULD ACCEPT THE PATIENT AND HER INSURANCE. CM WILL CONTINUE TO FOLLOW AND ASSIST WITH DC PLANNING NEEDED DCP- Discharge Planning Updated by [email or web address]: Praveena Pizarro on 01/11/20 11:[address] LATE ENTRY: 01/11/20 @ 0840 Patient Name: KACY BUCK Admission Status: Elective Accout number: [id number] Admission Date: 01-10-2020 : 1975 Admission Diagnosis: Attending: CRUZ CHAMBERLAIN Current LOS: 1 Anticipated DC Date: Planned Disposition: Home or Self Care Primary Insurance: [employer] MANAGED MEDICAID Discharge Planning Comments: CM met with patient to complete initial dc planning assessment. CM educated patient on the CM role and verbal consent given by patient to complete assessment. Patient lives at home with her friend where she is independent with her care. At discharge patient plans to return home and feels this is a safe discharge. CM discussed availability of home health, rehab services, and medical equipment. She stated that she was at [facility] multiple times for pancreatitis. Ginger Martinez will be her tractor driver home. SHe may need home health when she is discharged. She does not have a PCP. She did have surgery by Dr Chamberlain on 12/16 via [facility]patients. Patient denied known discharge needs at this time. CM will continue to follow and will assist as needed with dc plans/needs. Director Report: Praveena Pizarro DCPIA - Discharge Planning Initial Assessment Updated by [email or web address]: Praveena Pizarro on 01/11/20 12:20 pm * Is the patient Alert and Oriented? Yes * PCP none * Pharmacy [facility] [address] * Preadmission Environment Home with Family * ADLs Independent * Equipment None * List name and contact numbers for known caregivers / representatives who currently or will assist patient after discharge: GINGER MARTINEZ [phone] * Verbal permission to speak to the caregivers and representatives has been obtained from the patient. N/A * Community resources currently utilized None * Additional services required to return to the preadmission environment? Yes * Can the patient safely return to the preadmission environment? Yes * Has this patient been hospitalized within the prior 30 days at any hospital? Yes Last DP export: 01/13/20 1:29 p Patient Name: KACY BUCK Page [phone] at 1832 All edits/amendments must be made on the electronic document DICTATION DATE: 01/16/201831 ELECTRICAL & INSTRUMENTATION SUPERVISOR: ELLEN 01/16/201831 RPT#: [id number] DC DATE:01/13/20 STATUS: DIS IN [facility] [address] [place] [address] END OF REPORT
== END 2020-01-13 14:52 | disposition home health service (06) | DRG 857 ==
LOC: D.OPS 13:04 → D.MS 18:46 → D.OPS 18:47 → D.MS 18:47
PROVIDERS: Anesthesiology; Internal Medicine Nephrology; ADMIT Orthopaedic Surgery; ATTEND Orthopaedic Surgery
PROC: 0RBL0ZZ Excision of Right Elbow Joint, Open Approach (ICD-10-PCS; principal; 2020-01-10)
PROC: 05HY33Z Insertion of Infusion Device into Upper Vein, Percutaneous Approach (ICD-10-PCS; 2020-01-13)
DX: T81.41XA Infection following a procedure, superficial incisional surgical site, initial encounter (principal); M00.9 Pyogenic arthritis, unspecified; I10 Essential (primary) hypertension; E03.9 Hypothyroidism, unspecified; G89.4 Chronic pain syndrome; F41.8 Other specified anxiety disorders; F43.10 Post-traumatic stress disorder, unspecified; K21.9 Gastro-esophageal reflux disease without esophagitis

== ENCOUNTER → 2020-01-25 14:42 | Outpatient (CLI) | payer OTHER ==
[2020-01-10 23:22] VITALS: BMI 30.1
[~2020-01-25 14:42] MED LIST changes: +CRESTOR10 MG; +DILAUDID2 MG PO; +HYDROCODON-ACE1 EA10 PO; +IBUPROFEN400 MG PO; +SMZ-TMP DS TABL1 TAB PO; +VANCOMYCIN 1 GM/1 G1 IV; +VIBRAMYCIN 100100 MG PO
[2020-01-25 15:37] LABS: C-REACTIVE PROTEIN 0.5 mg/dL (0.0-0.9); VANCOMYCIN - RANDOM 2.9 ug/mL (10.0-20.0)
[2020-01-25 15:59] LABS: BASOPHILS 0.3 % (0-2); EOSINOPHILS 0 % (0-7); HEMATOCRIT 44.5 % (36.0-48.0); HEMOGLOBIN 14.8 g/dL (12-16); IMMATURE GRANULOCYTES 0.5 % (0-5); LYMPHOCYTES 23.1 % (15-50); MCH 29.1 pg (26.0-34.0); MCHC 33.3 g/dL (31.0-37.0); MCV 87.4 fL (80.0-100.0); MEAN PLATELET VOLUME 8.6 fL (7.4-10.4); MONOCYTES 5.1 % (2-11); PLATELET COUNT 397 10x3/uL (130-400); RBC 5.09 10x6/uL (4.00-5.40); RDW 14.2 % (11.5-14.5); WBC 14.7 10x3/uL (4.8-10.8)
[2020-01-25 17:08] LABS: ERYTHROCYTE SEDIMENTATION RATE 35 mm/hr (0-20)
== END | disposition home or self-care (01) ==
LOC: D.LABREF 14:42
PROVIDERS: ATTEND Clinical Nurse Specialist Family Health
DX: M00.021 Staphylococcal arthritis, right elbow (principal)

== ENCOUNTER → 2020-02-01 16:59 | Outpatient (CLI) | payer OTHER ==
[2020-01-10 23:22] VITALS: BMI 30.1
[2020-02-01 17:41] LABS: BASOPHILS 0.5 % (0-2); EOSINOPHILS 0 % (0-7); HEMATOCRIT 39.5 % (36.0-48.0); IMMATURE GRANULOCYTES 0.2 % (0-5); LYMPHOCYTES 28.8 % (15-50); MCH 28.8 pg (26.0-34.0); MCHC 32.9 g/dL (31.0-37.0); MCV 87.4 fL (80.0-100.0); MEAN PLATELET VOLUME 9.6 fL (7.4-10.4); NEUTROPHILS 66.5 % (40-80); PLATELET COUNT 393 10x3/uL (130-400); RBC 4.52 10x6/uL (4.00-5.40); RDW 14.4 % (11.5-14.5); WBC 8.6 10x3/uL (4.8-10.8)
[2020-02-01 19:10] LABS: ERYTHROCYTE SEDIMENTATION RATE 8 mm/hr (0-20)
[2020-02-02 14:32] LABS: VANCOMYCIN - RANDOM 36.3 ug/mL (10.0-20.0)
[2020-02-02 16:11] LABS: ANION GAP 19.5 mmol/L (8-16); CALCIUM 9.1 mg/dL (8.5-10.1); CARBON DIOXIDE 22.8 mmol/L (21.0-32.0); CREATININE - SERUM 1.1 mg/dL (0.6-1.3); POTASSIUM - SERUM 4.3 mmol/L (3.5-5.1)
== END | disposition home or self-care (01) ==
LOC: D.LABREF 16:59
PROVIDERS: ATTEND Clinical Nurse Specialist Family Health
DX: M00.021 Staphylococcal arthritis, right elbow (principal)

== ENCOUNTER → 2020-02-04 13:34 | Outpatient (CLI) | payer OTHER ==
[2020-01-10 23:22] VITALS: BMI 30.1
== END | disposition home or self-care (01) ==
LOC: D.LABREF 13:34
PROVIDERS: ATTEND Clinical Nurse Specialist Family Health
DX: M25.521 Pain in right elbow (principal)

== ENCOUNTER 2020-03-13 05:38 | Inpatient (IN) | payer OTHER ==
[~2020-03-13] VITALS: Ht 157.5 cm; Wt 74.1 kg
[~2020-03-13 05:38] MED LIST changes: +CLINDAMYCIN HC300 MG PO
[2020-03-13 06:22] VITALS: BP 156/109; BMI 29.9
[2020-03-13 06:34] LABS: BASOPHILS 0.2 % (0-2); EOSINOPHILS 0.9 % (0-7); HEMATOCRIT 40.8 % (36.0-48.0); HEMOGLOBIN 13.2 g/dL (12-16); IMMATURE GRANULOCYTES 0.5 % (0-5); LYMPHOCYTES 28.2 % (15-50); MCH 28.3 pg (26.0-34.0); MCHC 32.4 g/dL (31.0-37.0); MCV 87.4 fL (80.0-100.0); MEAN PLATELET VOLUME 8.6 fL (7.4-10.4); MONOCYTES 7.8 % (2-11); NEUTROPHILS 62.4 % (40-80); PLATELET COUNT 418 10x3/uL (130-400); RBC 4.67 10x6/uL (4.00-5.40); RDW 14.8 % (11.5-14.5); WBC 8.7 10x3/uL (4.8-10.8)
[2020-03-13 06:46] LABS: HCG SERUM NEGATIVE (NEGATIVE)
[2020-03-13 10:48] VITALS: BP 123/86
[2020-03-13 13:09] VITALS: BP 123/86; Ht 157.5 cm; Wt 74.1 kg
[2020-03-13 16:29] VITALS: BP 117/84
--- NOTE | 2020-03-13 18:32 | NUR ---
WIPED DOWN WALL BESIDE THE TOILET. WIPED DOWN TOILET WITH BLEACH WIPES. PATIENT DID NOT WANT ME TO REMOVE THE WASH RAG OR NO MORE TEARS ALBERTO SHAMPOO FROM THE SHOWER. PATIENT HAS NOT HAD ANY OF THESE PRODUCTS PROVIDED. PATIENT IS UPSET ROOM WAS NOT CLEANED APPROPRIATELY. CL IN REACH. WCTM.
--- NOTE | 2020-03-13 23:30 | NUR ---
ANSWERED CALL CAYDEN RODRÍGUEZ YELLIN ABOUT MACHINIST LINOTYPE THAT CAME TO TAKE V/S. SHE REFUSED. COMPLAING SAID THAT [facility]. PT HAD TRUNED OFF COTTON HEADER PUMP AND WAS TOUCHING IV PUMPS. YELLING ABOUT WHAT SHE SAID THE MACHINIST LINOTYPE DID ON DAY SHIFT. EDCATED PATIENT THAT WE JUST GOT HER AND ARE SORRY THAT HAPPED. BUT SHE CAN NOT TRUN IV PUMPS ON AND /OR OFF/ RESTART THEM ONLY NURSING STAFF CAN DO THAT. SHE WAS YELLING THAT SHE HAD PICTURES OF HOW BAD THE ROOM LOOKED WHEN SHE GOT HERE. GROUP SOCIAL WORKER CALL TO ROM TO TALK WITH PATIENT. GROUP SOCIAL WORKER CALLED TO ROOM AND SPOKE WITH PATIENT. OFFERED TO MOVE HER TO A NEW ROOM, AND APOLOGIZED TO HER AGAIN. SHE REFUSED ROOM CHANGE. STATED SHE WAS GOING HOME IN THE [facility]. AGAIN STATED THAT SHE HAD PHOTS OF HOW THE ROOM LOOKED WHEN SHE GOT HERE, AND I CAN PUT THERM EVERYWHERE. PATIENT WAS OFERED A NEW ROOM AND REFUSED. ANNE EDUCATED THAT SHE COULD NOT TRUN OFF /ON THE IV /COTTON HEADER PUMPS THAT ONLY NURSING SATFF CAN DO THAT. 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 EDUCATED THAT IF SHE CONTIUED TO TRUN ON /OFF THE COTTON HEADER PUMP THAT IT WOULD BE D/C'D. SHE AGAIN STATED SHE WAS TRAING IN HOW TO WORK THE PUMPS SHE IS/WAS A BUILDING CLEANER. VIVIENNEZOYA ASK FOR MAX PADS. CECILIA BROUGHT HER THE ONES WE HAVE ON THE FLOOR SHE STATED THAT THESS WERE NOT WHAT SHE WANTED . SHE WANTED TO ONES THAT STICK TO YOUR PANIES, AND SHE KNOWS WE HWVE THEM EDUCATED VIVIENNEZOAY THAT WE DID NOT HAVE THEM, WE ONLE HAVE WHAT WE BROUGHT. SHE STATED I KNOW BETTER., BUT OK.
--- NOTE | 2020-03-14 02:42 | NUR ---
AT JUST AFTER MIDNIGHT PATIENT CALLED WENT TO ROOM TRANSPORTATION MAINTENANCE SPECIALIST WAS OUT. ANOUTHER FLOOR NURSE BROUGHT NEW DILAUDID SYRINGE TO BE PLACE IN TRANSPORTATION MAINTENANCE SPECIALIST. DOOR TO TRANSPORTATION MAINTENANCE SPECIALIST UNLCOKED THIS NURSE TRUNED TO SCAN NEW SYRINGE AND PATIENT LEANED OVER AND WAS REACHING FOR THE PUMP. THIS NURSE ASK PATIENT NOT TO TOUCH THE TRANSPORTATION MAINTENANCE SPECIALIST PUMP. SHE STATED I WASN'T. NEW SYRINGE PLACED CHECKED DOOR LOCKED PUMP STARTED. DOOR LOCK RECHECKED TO INSURE IT WAS LOCKED.
--- NOTE | 2020-03-14 02:47 | NUR ---
THIS NURSE KNOCKED ON DOOR ENTERED TO REMOVE TRACH FROM ROOM. EMPTED TRASH UNDER COMPUTER. THEN WENT TO THE BATHROOM TO REMOVE TRACH FROM THERE, ANNE STATED GET OUT. THIS NURSE ASK DON'T YOU WANT ME TO FINISH GETTING HER TRACH OUT? SHE STAED YOU DO KNOW THAT WE HAVE PATIENT RIGHTS DON'T YOU. THIS NURSE STATED YES ALIA AND ASK AGAIN DON'T YOU AT LEAST WANT THE NEW TRASH BAG PLACED IN THE TRACH IN THE BATHROOM SHE STATED PUT IT THERE I'LL PUT IT IN, IN A MINUTE. TRACH BAG LEFT ON COMPUTER [place]. DOOR CLOSED.
[2020-03-14 04:17] LABS: HEMOGLOBIN 10.5 g/dL (12-16)
[2020-03-14 07:47] VITALS: BP 126/86
--- NOTE | 2020-03-14 07:55 | NUR ---
PATIENT PROVIDED WITH 2 SPRITES. VS TAKEN. ASSESSMENT COMOPLETED. NO NEEDS AT THIS TIME. GETTING UP TO THE BATHROOM AFTER I LEAVE. CL IN REACH. WCTM
[2020-03-14 11:14] VITALS: BP 118/84
--- NOTE | 2020-03-14 12:33 | MORECARE ---
CASE MANAGEMENT DISCHARGE SUMMARY PATIENT: KACY BUCK UNIT: [id number] ADM DATE: 03/13/20 AGE: 44 : 77 SEX: F ROOM/BED: D.2204 AUTHOR: DEISI MARTINEZ PHYSICIAN: REFERRING PHYSICIAN: CRUZ CHAMBERLAIN MD DATE OF SERVICE: 03/14/20 Discharge Plan Patient Name: KACY BUCK Facility: [facility]:[place] : 1975 Planned Disposition: Home with Infusion Therapy Services Anticipated Discharge Date: Discharge Date: Expected LOS: Initial Reviewer: [email or web address] Initial Review Date: 03/13/2020 Generated: 03/14/20 1:32 pm DCPIA - Discharge Planning Initial Assessment Updated by [email or web address]: Praveena Pizarro on 03/14/20 12:30 pm * Is the patient Alert and Oriented? Yes * How many steps to enter\exit or inside your home? * PCP RAMESH CHAMBERLAIN * Pharmacy [facility] [address] * Preadmission Environment Home with Family * ADLs Independent * Equipment None * List name and contact numbers for known caregivers / representatives who currently or will assist patient after discharge: GINGER [phone] * Verbal permission to speak to the caregivers and representatives has been obtained from the patient. N/A * Community resources currently utilized None * Additional services required to return to the preadmission environment? Yes * Can the patient safely return to the preadmission environment? Yes * Has this patient been hospitalized within the prior 30 days at any hospital? No External Providers External Provider: [facility] Next Contact Date: Service Request Date: Service Type: Resolution: Reviewer: Comments: Patient Name: KACY BUCK Page 51750 at 1233 All edits/amendments must be made on the electronic document DICTATION DATE: 03/14/20 1232 AIR TABLE OPERATOR: ELLEN 03/14/20 1232 RPT#: [id number] DC DATE: STATUS: ADM IN [facility] [address] [place] [address] END OF REPORT
--- NOTE | 2020-03-14 12:40 | MORECARE ---
CASE MANAGEMENT DISCHARGE SUMMARY PATIENT: KACY BUCK UNIT: [id number] ADM DATE: 03/13/20 AGE: 44 : 77 SEX: F ROOM/BED: D.2204 AUTHOR: DEISI MARTINEZ PHYSICIAN: REFERRING PHYSICIAN: CRUZ CHAMBERLAIN MD DATE OF SERVICE: 03/14/20 Discharge Plan Patient Name: KACY BUCK Facility: [facility]:[place] : 1975 Planned Disposition: Home with Infusion Therapy Services Anticipated Discharge Date: Discharge Date: Expected LOS: Initial Reviewer: [id number] Initial Review Date: 03/13/2020 Generated: 03/14/20 1:40 pm Comments DCP- Discharge Planning Updated by [id number]: Praveena Pizarro on 03/14/20 11:[address] Patient Name: KACY BUCK Admission Status: Elective Accout number: [id number] Admission Date: 03-13-2020 : 1975 Admission Diagnosis: Attending: CRUZ CHAMBERLAIN Current LOS: 1 Anticipated DC Date: Planned Disposition: Home with Infusion Therapy Services Primary Insurance: [employer] MEDICAID Discharge Planning Comments: CM met with patient to complete initial dc planning assessment. CM educated patient on the CM role and verbal consent given by patient to complete assessment. Patient lives at home with boyfriend where she states she is independent with her care. At discharge patient plans to return home and feels this is a safe discharge. Her physical address is [address] [place] [address]. CM discussed availability of home health, rehab services, and medical equipment. She will need IV abx and HH again. MIROSLAVA is with [facility]. In the past [facility] was set up by Dr Crockett office, but they had issues in getting in touch with her, so they are checking with the office to see if they will accept her back. I have sent all referrals to [facility] and called June with [facility]. Patient denied known discharge needs at this time. CM will continue to follow and will assist as needed with dc plans/needs. Pipe Turner: Praveena Pizarro DCPIA - Discharge Planning Initial Assessment Updated by [id number]: Praveena Pizarro on 03/14/20 12:30 pm * Is the patient Alert and Oriented? Yes * How many steps to enter\exit or inside your home? * PCP RAEMSH CHAMBERLAIN * Pharmacy [facility] [address] * Preadmission Environment Home with Family * ADLs Independent * Equipment None * List name and contact numbers for known caregivers / representatives who currently or will assist patient after discharge: GINGER [phone] * Verbal permission to speak to the caregivers and representatives has been obtained from the patient. N/A * Community resources currently utilized None * Additional services required to return to the preadmission environment? Yes * Can the patient safely return to the preadmission environment? Yes * Has this patient been hospitalized within the prior 30 days at any hospital? No Coverage Notice Reviewer: [id number] - Praveena Pizarro Notice Issued Date-Time: 03/14/2020 12:20 Notice Type: Patient Choice Letter Notice Delivered To: Patient Relationship to Patient: Product Manager Name: Delivery Method: HAND - Hand Delivered Otilia Days: Prior Verbal Notification: Recipient Understood Notice: Yes Recipient Signature: Yes Med Rec Note Co-signed by Attending: Coverage Notice Comment: miroslava landis and jim/jose maria Last DP export: 03/14/20 11:33 a Patient Name: KACY BUCK Page [id number] at 1240 All edits/amendments must be made on the electronic document DICTATION DATE: 03/14/20 1240 HYDROPONICS WORKER: ELLEN 03/14/20 1240 RPT#: [id number] DC DATE: STATUS: ADM IN [facility] [address] [place] [address] END OF REPORT
--- NOTE | 2020-03-14 13:34 | MORECARE ---
CASE MANAGEMENT DISCHARGE SUMMARY PATIENT: KACY BUCK UNIT: [id number] ADM DATE: 03/13/20 AGE: 44 : 77 SEX: F ROOM/BED: D.2204 AUTHOR: MICHELLE,DOC PHYSICIAN: REFERRING PHYSICIAN: CRUZ CHAMBERLAIN MD DATE OF SERVICE: 03/14/20 Discharge Plan Patient Name: KACY BUCK Facility: [facility]:[place] : 1975 Planned Disposition: Home with Infusion Therapy Services Anticipated Discharge Date: Discharge Date: Expected LOS: Initial Reviewer: [id number] Initial Review Date: 03/13/2020 Generated: 03/14/20 2:33 pm Comments DCP- Discharge Planning Updated by [email or web address]: Praveena Pizarro on 03/14/20 12:[address] [facility] BACK AND THEY CAN NOT ACCEPT HER BACK, I WILLL SEND REFERRAL TO [facility] DCP- Discharge Planning Updated by [id number]: Praveena Pizarro on 03/14/20 11:[address] Patient Name: KACY BUCK Admission Status: Elective Accout number: [id number] Admission Date: 03-13-2020 : 1975 Admission Diagnosis: Attending: CRUZ CHAMBERLAIN Current LOS: 1 Anticipated DC Date: Planned Disposition: Home with Infusion Therapy Services Primary Insurance: [facility] MANAGED MEDICAID Discharge Planning Comments: CM met with patient to complete initial dc planning assessment. CM educated patient on the CM role and verbal consent given by patient to complete assessment. Patient lives at home with boyfriend where she states she is independent with her care. At discharge patient plans to return home and feels this is a safe discharge. [address] physical [address] is [address]. CM discussed availability of home health, rehab services, and medical equipment. She will need IV abx and HH again. MIROSLAVA is with [facility] or [facility]. In the past [facility] was set up by Dr Crockett office, but they had issues in getting in touch with her, so they are checking with the office to see if they will accept her back. I have sent all referrals to [facility] and called June with [facility]. Patient denied known discharge needs at this time. CM will continue to follow and will assist as needed with dc plans/needs. Leave Manager: Praveena Pizarro DCPIA - Discharge Planning Initial Assessment Updated by [id number]: Praveena Pizarro on 03/14/20 12:30 pm * Is the patient Alert and Oriented? Yes * How many steps to enter\exit or inside your home? * PCP RAMESH CHAMBERLAIN * Pharmacy [facility] [address] * Preadmission Environment Home with Family * ADLs Independent * Equipment None * List name and contact numbers for known caregivers / representatives who currently or will assist patient after discharge: GINGER [phone] * Verbal permission to speak to the caregivers and representatives has been obtained from the patient. N/A * Community resources currently utilized None * Additional services required to return to the preadmission environment? Yes * Can the patient safely return to the preadmission environment? Yes * Has this patient been hospitalized within the prior 30 days at any hospital? No External Providers External Provider[facility] Next Contact Date: Service Request Date: Service Type: Resolution: Reviewer: Comments: Coverage Notice Reviewer: [id number] - Praveena Pizarro Notice Issued Date-Time: 03/14/2020 12:20 Notice Type: Patient Choice Letter Notice Delivered To: Patient Relationship to Patient: Lead Pl Sql Developer Name: Delivery Method: HAND - Hand Delivered Otilia Days: Prior Verbal Notification: Recipient Understood Notice: Yes Recipient Signature: Yes Med Rec Note Co-signed by Attending: Coverage Notice Comment: miroslava [place] and jim/ruba Last DP export: 03/14/20 11:40 a Patient Name: KACY BUCK Page [id number] at 1334 All edits/amendments must be made on the electronic document DICTATION DATE: 03/14/20 1333 DELIVERY REP: ELLEN 03/14/20 1333 RPT#: [id number] DC DATE: STATUS: ADM IN [facility] [address] [place] [address] END OF REPORT
--- NOTE | 2020-03-14 14:25 | MORECARE ---
CASE MANAGEMENT DISCHARGE SUMMARY PATIENT: KACY BUCK UNIT: [id number] ADM DATE: 03/13/20 AGE: 44 : 77 SEX: F ROOM/BED: D.2204 AUTHOR: MICHELLE,DOC PHYSICIAN: REFERRING PHYSICIAN: CRUZ CHAMBERLAIN MD DATE OF SERVICE: 03/14/20 Discharge Plan Patient Name: KACY BUCK Facility: [facility]:[place] : 1975 Planned Disposition: Home with Infusion Therapy Services Anticipated Discharge Date: Discharge Date: Expected LOS: Initial Reviewer: [id number] Initial Review Date: 03/13/2020 Generated: 03/14/20 3:24 pm Comments DCP- Discharge Planning Updated by [id number]: Praveena Pizarro on 03/14/20 1:[address] [facility] ACCEPT PATIENT DCP- Discharge Planning Updated by [id number]: Praveena Pizarro on 03/14/20 12:[address] [facility] AND THEY CAN NOT ACCEPT HER BACK, I WILLL SEND REFERRAL TO [facility] DCP- Discharge Planning Updated by [id number]: Praveena Pizarro on 03/14/20 11:[address] Patient Name: KACY BUCK Admission Status: Elective Accout number: [id number] Admission Date: 03-13-2020 : 1975 Admission Diagnosis: Attending: CRUZ CHAMBERLAIN Current LOS: 1 Anticipated DC Date: Planned Disposition: Home with Infusion Therapy Services Primary Insurance: [facility] MANAGED MEDICAID Discharge Planning Comments: CM met with patient to complete initial dc planning assessment. CM educated patient on the CM role and verbal consent given by patient to complete assessment. Patient lives at home with boyfriend where she states she is independent with her care. At discharge patient plans to return home and feels this is a safe discharge. Her physical address is [address]. CM discussed availability of home health, rehab services, and medical equipment. She will need IV abx and HH again. MIROSLAVA is with [facility]. In the past [facility] was set up by Dr Crockett office, but they had issues in getting in touch with her, so they are checking with the office to see if they will accept her back. I have sent all referrals to [place] and called June with [facility]. Patient denied known discharge needs at this time. CM will continue to follow and will assist as needed with dc plans/needs. Immigration Judge: Praveena Pizarro DCPIA - Discharge Planning Initial Assessment Updated by [id number]: Praveena Pizarro on 03/14/20 12:30 pm * Is the patient Alert and Oriented? Yes * How many steps to enter\exit or inside your home? * PCP RAMESH CHAMBERLAIN * [facility] [address] * Preadmission Environment Home with Family * ADLs Independent * Equipment None * List name and contact numbers for known caregivers / representatives who currently or will assist patient after discharge: GINGER [phone] * Verbal permission to speak to the caregivers and representatives has been obtained from the patient. N/A * Community resources currently utilized None * Additional services required to return to the preadmission environment? Yes * Can the patient safely return to the preadmission environment? Yes * Has this patient been hospitalized within the prior 30 days at any hospital? No Coverage Notice Reviewer: [id number] - Praveena Pizarro Notice Issued Date-Time: 03/14/2020 12:20 Notice Type: Patient Choice Letter Notice Delivered To: Patient Relationship to Patient: Furnace And Wash Equipment Operator Name: Delivery Method: HAND - Hand Delivered Otilia Days: Prior Verbal Notification: Recipient Understood Notice: Yes Recipient Signature: Yes Med Rec Note Co-signed by Attending: Coverage Notice Comment: miroslava [facility] [place] [facility] Last DP export: 03/14/20 12:34 p Patient Name: KACY BUCK Page [id number] at 1425 All edits/amendments must be made on the electronic document DICTATION DATE: 03/14/20 142 MOTORBIKE COURIER: ELLEN 03/14/20 142 RPT#: [id number] DC DATE: STATUS: ADM IN [address] [place] [address] END OF REPORT
[2020-03-14] MEDS ORDERED: VANCOMYCIN 1 GM/1 G1 IV (15:16)
[2020-03-14] MEDS ORDERED: DILAUDID2 MG PO (15:16)
[2020-03-14] MEDS ORDERED: XANAX0.25 MG PO (15:16)
[2020-03-14] MEDS ORDERED: MULTI-DAY VITAM1 TAB PO (15:19)
[2020-03-14 15:32] VITALS: BP 116/77
[2020-03-14 16:11] LABS: ERYTHROCYTE SEDIMENTATION RATE 13 mm/hr (0-20)
--- NOTE | 2020-03-14 16:43 | MORECARE ---
CASE MANAGEMENT DISCHARGE SUMMARY PATIENT: KACY BUCK UNIT: [id number] ADM DATE: 03/13/20 AGE: 44 : 77 SEX: F ROOM/BED: D.2204 AUTHOR: MICHELLE,DOC PHYSICIAN: REFERRING PHYSICIAN: CRUZ CHAMBERLAIN MD DATE OF SERVICE: 03/14/20 Discharge Plan Patient Name: KACY BUCK Facility: [facility]:[place] : 1975 Planned Disposition: Home with Infusion Therapy Services Anticipated Discharge Date: Discharge Date: Expected LOS: Initial Reviewer: [id number] Initial Review Date: 03/13/2020 Generated: 03/14/20 5:42 pm Comments DCP- Discharge Planning Updated by [email or web address]: Praveena Pizarro on 03/14/20 3:[address] PATIENT WILL BE DISCHARGING HOME TODAY, PICC LINE PLACED. [facility] WILL BE DELIVERING MEDS AND DOING THE TEACHING TOMORROW BEFORE 10:00 AM. [facility] AND WILL START OF CARE TOMORROW . CM WILL CONTINUE TO FOLLOW AND ASSIST I HAVE EXPRESSED TO HER THE IMPORTANCE OF BEING COMPLIANT WITH HER MEDICINE AND TREATMENT DCP- Discharge Planning Updated by [email or web address]: Praveena Pizarro on 03/14/20 1:[address] [facility] WILL ACCEPT PATIENT DCP- Discharge Planning Updated by [id number]: Praveena Pizarro on 03/14/20 12:[address] BIBI WITH [facility] CALLED BACK AND THEY CAN NOT ACCEPT HER BACK, I WILLL SEND REFERRAL TO [facility] DCP- Discharge Planning Updated by [id number]: Praveena Pizarro on 03/14/20 11:[address] Patient Name: KACY BUCK Admission Status: Elective Accout number: [id number] Admission Date: 03-13-2020 : 1975 Admission Diagnosis: Attending: CRUZ CHAMBERLAIN Current LOS: 1 Anticipated DC Date: Planned Disposition: Home with Infusion Therapy Services Primary Insurance: [employer] MANAGED MEDICAID Discharge Planning Comments: CM met with patient to complete initial dc planning assessment. CM educated patient on the CM role and verbal consent given by patient to complete assessment. Patient lives at home with boyfriend where she states she is independent with her care. At discharge patient plans to return home and feels this is a safe discharge. Her physical address is [address] CM discussed availability of home health, rehab services, and medical equipment. She will need IV abx and HH again. MIROSLAVA is with [facility]. In the past [facility] was set up by Dr Crockett office, but they had issues in getting in touch with her, so they are checking with the office to see if they will accept her back. I have sent all referrals to [facility] and called June with [facility]. Patient denied known discharge needs at this time. CM will continue to follow and will assist as needed with dc plans/needs. Propeller Layout Worker: Praveena Pizarro DCPIA - Discharge Planning Initial Assessment Updated by [email or web address]: Praveena Pizarro on 03/14/20 12:30 pm * Is the patient Alert and Oriented? Yes * How many steps to enter\exit or inside your home? * PCP RAMESH CHAMBERLAIN * Pharmacy [facility] [address] * Preadmission Environment Home with Family * ADLs Independent * Equipment None * List name and contact numbers for known caregivers / representatives who currently or will assist patient after discharge: GINGER [phone] * Verbal permission to speak to the caregivers and representatives has been obtained from the patient. N/A * Community resources currently utilized None * Additional services required to return to the preadmission environment? Yes * Can the patient safely return to the preadmission environment? Yes * Has this patient been hospitalized within the prior 30 days at any hospital? No Coverage Notice Reviewer: [id number] - Praveena Pizarro Notice Issued Date-Time: 03/14/2020 12:20 Notice Type: Patient Choice Letter Notice Delivered To: Patient Relationship to Patient: Outcomes Specialist Name: Delivery Method: HAND - Hand Delivered Otilia Days: Prior Verbal Notification: Recipient Understood Notice: Yes Recipient Signature: Yes Med Rec Note Co-signed by Attending: Coverage Notice Comment: miroslava [place] [facility] Last DP export: 03/14/20 1:25 p Patient Name: KACY BUCK Page [phone] at 1643 All edits/amendments must be made on the electronic document DICTATION DATE: 03/14/201641 COMMERCIAL LINES ASSISTANT: DM 03/14/201641 RPT#: [id number] DC DATE: STATUS: ADM IN [facility] [address] [place] [address] END OF REPORT
--- NOTE | 2020-03-14 18:10 | NUR ---
IV THERAPY REMOVED FROM LEFT FOREARM TIP INTACT. GAVE PATIENT A BOLUS BEFORE HER DEPARTURE PER [facility]. ATTACHED IV PUMP TO PICC TO RUN FLUID AND BOLUS. PATIENT THEN PROCEEDS TO TELL ME THAT HOME HEALTH SENDS THEM HEP FLUSHES WITH IT. I EXPLAINED THAT [facility] DOES NOT DO THAT ANYMORE. HAD SUNDEEP WITH VASCULAR ACCESS EXPLAIN THAT. PATIENT WANTED ME TO CALL THE DOCTOR. ORDER GIVEN FOR 300 UNIT HEP FLUSH FROM [facility]. WHEELED TO ER ENTRANCE. GIVEN 4 ORANGE SHERBERTS AND AN ICE PACK.
--- NOTE | 2020-03-14 20:17 | NUR ---
MEDICATIONS CALLED IN TO [facility] HAVE BEEN CANCELLED. PATIENT NEEDED MEDICATIONS SENT TO [facility] ON [address]. I WAS ABLE TO CALL THE ALPRAZOLAM AND THERAGAN INTO [facility]. DR RAMON HAD TO BE CALLED FOR A PAPER SCRIPT FOR THE HYDROMORPHONE.
--- NOTE | 2020-03-15 09:03 | MORECARE ---
CASE MANAGEMENT DISCHARGE SUMMARY PATIENT: KACY BUCK UNIT: [id number] ADM DATE: 03/13/20 AGE: 44 : 77 SEX: F ROOM/BED: D.2204 AUTHOR: MICHELLE,DOC PHYSICIAN: REFERRING PHYSICIAN: CRUZ CHAMBERLAIN MD DATE OF SERVICE: 03/15/20 Discharge Plan Patient Name: KACY BUCK Facility: [facility]:[place] : 1975 Planned Disposition: Home with Infusion Therapy Services Anticipated Discharge Date: Discharge Date: 03/14/2020 Expected LOS: Initial Reviewer: [id number] Initial Review Date: 03/13/2020 Generated: 03/15/20 10:03 am Comments DCP- Discharge Planning Updated by [email or web address]: Praveena Pizarro on 03/14/20 3:[address] PATIENT WILL BE DISCHARGING HOME TODAY, PICC LINE PLACED. [facility] WILL BE DELIVERING MEDS AND DOING THE TEACHING TOMORROW BEFORE 10:00 AM. [facility] AND WILL START OF CARE TOMORROW . CM WILL CONTINUE TO FOLLOW AND ASSIST I HAVE EXPRESSED TO HER THE IMPORTANCE OF BEING COMPLIANT WITH HER MEDICINE AND TREATMENT DCP- Discharge Planning Updated by [email or web address]: Praveena Pizarro on 03/14/20 1:[address] [facility] WILL ACCEPT PATIENT DCP- Discharge Planning Updated by [email or web address]: Praveena Pizarro on 03/14/20 12:[address] [facility]IB[facility] WITH [facility] AND THEY CAN NOT ACCEPT HER BACK, I WILLL SEND REFERRAL TO [facility] DCP- Discharge Planning Updated by [id number]: Praveena Pizarro on 03/14/20 11:[address] Patient Name: KACY BUCK Admission Status: Elective Accout number: [id number] Admission Date: 03-13-2020 : 1975 Admission Diagnosis: Attending: CRUZ CHAMBERLAIN Current LOS: 1 Anticipated DC Date: Planned Disposition: Home with Infusion Therapy Services Primary Insurance: [employer] MANAGED MEDICAID Discharge Planning Comments: CM met with patient to complete initial dc planning assessment. CM educated patient on the CM role and verbal consent given by patient to complete assessment. Patient lives at home with boyfriend where she states she is independent with her care. At discharge patient plans to return home and feels this is a safe discharge. Her physical address is [address] CM discussed availability of home health, rehab services, and medical equipment. She will need IV abx and HH again. MIROSLAVA is with [facility]. In the past [facility] was set up by Dr Crockett office, but they had issues in getting in touch with her, so they are checking with the office to see if they will accept her back. I have sent all referrals to [facility] and called June with [facility]. Patient denied known discharge needs at this time. CM will continue to follow and will assist as needed with dc plans/needs. Diving Fisher: Praveena Pizarro DCPIA - Discharge Planning Initial Assessment Updated by [email or web address]: Praveena Pizarro on 03/14/20 12:30 pm * Is the patient Alert and Oriented? Yes * How many steps to enter\exit or inside your home? * PCP RAMESH CHAMBERLAIN * Pharmacy [facility] [address] * Preadmission Environment Home with Family * ADLs Independent * Equipment None * List name and contact numbers for known caregivers / representatives who currently or will assist patient after discharge: GINGER [phone] * Verbal permission to speak to the caregivers and representatives has been obtained from the patient. N/A * Community resources currently utilized None * Additional services required to return to the preadmission environment? Yes * Can the patient safely return to the preadmission environment? Yes * Has this patient been hospitalized within the prior 30 days at any hospital? No Coverage Notice Reviewer: [id number] - Praveena Pizarro Notice Issued Date-Time: 03/14/2020 12:20 Notice Type: Patient Choice Letter Notice Delivered To: Patient Relationship to Patient: Obstetrics Gyn Name: Delivery Method: HAND - Hand Delivered Otilia Days: Prior Verbal Notification: Recipient Understood Notice: Yes Recipient Signature: Yes Med Rec Note Co-signed by Attending: Coverage Notice Comment: miroslava [facility] and [facility] Last DP export: 03/14/20 3:43 p Patient Name: KACY BUCK Page 29045 at 0903 All edits/amendments must be made on the electronic document DICTATION DATE: 03/15/20902 QUARTER SUPERVISOR: DM 03/15/20902 RPT#: [id number] DC DATE:03/14/20 STATUS: DIS IN [facility] [address] [place] [address] END OF REPORT
--- NOTE | 2020-03-16 07:47 | OP ---
PATIENT NAME: KACY DIETZ MEDICAL RECORD: [id number] :77 LOCATION:[facility] ADMISSION DATE:03/13/20 SURGEON: CRUZ CHAMBERLAIN MD DATE OF OPERATION: 03/13/2020 PREOPERATIVE DIAGNOSIS: Septic arthritis of the patient's right elbow. POSTOPERATIVE DIAGNOSIS: Septic arthritis of the patient's right elbow. PROCEDURE: Excisional debridement of septic arthritis of the right elbow to include skin, subcutaneous tissue, portions of fat, fascia, muscle, and bone. SURGEON: Cruz Chamberlain MD LINE DRIVER: SADA Arthur INTRAOPERATIVE COMPLICATIONS: None. 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 Cultures were taken. INDICATIONS: Ms. Dietz is a 44-year-old female who apparently has problems with substance abuse. The last time we discharged her, she fired all of her home health care agencies and had to have her PICC line removed. She came back into our clinic with a draining elbow and obviously has a residual septic elbow with cultures showing methicillin-resistant Staphylococcus aureus. Prior to the surgery, I told her that she is at risk for losing her upper extremity if she does not become more compliant. Her quote was the person that was at her house causing problems is no longer there and she agreed to have home health care for the appropriate IV antibiotics postoperatively. New cultures were taken today. 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 She came to me with recalcitrant lateral epicondylitis. Surgery was performed. She was discharged on outpatient basis. The next day, she presented to an outside facility with pancreatitis, where she stayed for 10 days and then checked herself out AMA to make her postoperative followup. She has since that hospitalization had methicillin-resistant Staphylococcus aureus in her right elbow. OPERATIVE SUMMARY IN DETAIL: After obtaining the appropriate preoperative orthopedic surgery consent as well as anesthetic consultation, evaluation and clearance, the patient was brought to the operating room and placed on the operating table in supine position. After general anesthesia was administered and the appropriate timeout was taken and reviewed by all given the patient's unique identifiers, the patient's right elbow had been prepped and draped in routine sterile fashion. The tourniquet was placed; however, was not used during this case. The punctiform hole was utilized for cultures. This was then elongated with a scalpel sharply. Upon evaluation of the patient's joint, she had serosanguineous clear mucinous fluid with some phlegmon. Copious irrigation was carried out with a bulb syringe along with curettage, scalpel and rongeur removal of all nonviable-appearing tissue. The wound was thusly irrigated over and over and the residual capsule was closed with #1 Vicryl in a moaemo-ma-qduad fashion. Good closure was achieved in what was thought to be a watertight fashion. Having completed this, the skin was then closed with a combination of both 2-0 and 4-0 Prolene to further complete the watertight seal. The OPERATIVE REPORT [id number] KACY DIETZ tourniquet that was not used was removed. After sterile dressings were placed across the wound, she was placed in a posterior splint in hopes that this would allow for healing. She was then awakened and taken to recovery room in stable condition. All final needle and sponge counts correct. TRANSINT:[id number] Voice Confirmation ID: [id number] DOCUMENT ID: [id number] CINTIA ARAGON, CRUZ REYNOLDS at [id number] CC: [id number] DICTATION DATE: 03/15/20834 CORPORATE REAL ESTATE MANAGER: 03/15/20 1110 DIS IN 03/14/20 [id number] [place] [address]
== END 2020-03-14 18:22 | disposition home health service (06) | DRG 494 ==
LOC: D.OPS 05:38 → D.PAN 07:30 → D.MS 10:27 → D.OPS 10:28 → D.MS 10:28
PROVIDERS: Anesthesiology; ADMIT Orthopaedic Surgery; ATTEND Orthopaedic Surgery
PROC: 0PBF0ZZ Excision of Right Humeral Shaft, Open Approach (ICD-10-PCS; principal; 2020-03-13 07:30)
PROC: 05HC33Z Insertion of Infusion Device into Left Basilic Vein, Percutaneous Approach (ICD-10-PCS; 2020-03-14)
PROC: B54NZZA Ultrasonography of Left Upper Extremity Veins, Guidance (ICD-10-PCS; 2020-03-14)
DX: M00.021 Staphylococcal arthritis, right elbow (principal); I10 Essential (primary) hypertension; B95.62 Methicillin resistant Staphylococcus aureus infection as the cause of diseases classified elsewhere

== ENCOUNTER → 2020-03-17 09:52 | Outpatient (CLI) | payer OTHER ==
[2020-03-13 13:09] VITALS: BMI 29.9
[~2020-03-17 09:52] MED LIST changes: +MULTI-DAY VITAM1 TAB PO; +XANAX0.25 MG PO
[2020-03-17 11:04] LABS: BASOPHILS 0.2 % (0-2); EOSINOPHILS 1.4 % (0-7); HEMOGLOBIN 12.1 g/dL (12-16); IMMATURE GRANULOCYTES 0.4 % (0-5); MCH 28.2 pg (26.0-34.0); MCHC 31.8 g/dL (31.0-37.0); MCV 88.6 fL (80.0-100.0); MEAN PLATELET VOLUME 9.3 fL (7.4-10.4); MONOCYTES 8.7 % (2-11); NEUTROPHILS 57.3 % (40-80); PLATELET COUNT 421 10x3/uL (130-400); RBC 4.29 10x6/uL (4.00-5.40); RDW 14.6 % (11.5-14.5); WBC 10.6 10x3/uL (4.8-10.8)
[2020-03-17 11:16] LABS: C-REACTIVE PROTEIN 4.6 mg/dL (0.0-0.9); CREATININE - SERUM 1.4 mg/dL (0.6-1.3); VANCOMYCIN - TROUGH 18.5 ug/mL (10.0-20.0)
[2020-03-17 12:50] LABS: ERYTHROCYTE SEDIMENTATION RATE 37 mm/hr (0-20)
== END | disposition home or self-care (01) ==
LOC: D.LABREF 09:52
PROVIDERS: ATTEND Orthopaedic Surgery
DX: M00.80 Arthritis due to other bacteria, unspecified joint (principal)

== ENCOUNTER → 2020-03-22 13:44 | Outpatient (CLI) | payer OTHER ==
[2020-03-13 13:09] VITALS: BMI 29.9
[2020-03-22 13:58] LABS: BASOPHILS 0.2 % (0-2); EOSINOPHILS 0.3 % (0-7); HEMATOCRIT 37.1 % (36.0-48.0); HEMOGLOBIN 11.6 g/dL (12-16); IMMATURE GRANULOCYTES 0.3 % (0-5); LYMPHOCYTES 26.8 % (15-50); MCH 28.3 pg (26.0-34.0); MCHC 31.3 g/dL (31.0-37.0); MCV 90.5 fL (80.0-100.0); MONOCYTES 6.1 % (2-11); NEUTROPHILS 66.3 % (40-80); PLATELET COUNT 411 10x3/uL (130-400); RDW 14.6 % (11.5-14.5); WBC 9.7 10x3/uL (4.8-10.8)
[2020-03-22 14:17] LABS: C-REACTIVE PROTEIN 0.8 mg/dL (0.0-0.9); CREATININE - SERUM 1.1 mg/dL (0.6-1.3); VANCOMYCIN - TROUGH 12.4 ug/mL (10.0-20.0)
[2020-03-22 16:20] LABS: ERYTHROCYTE SEDIMENTATION RATE 36 mm/hr (0-20)
== END | disposition home or self-care (01) ==
LOC: D.LABREF 13:44
PROVIDERS: ATTEND Orthopaedic Surgery
DX: T81.43XA Infection following a procedure, organ and space surgical site, initial encounter (principal); M00.021 Staphylococcal arthritis, right elbow; B95.62 Methicillin resistant Staphylococcus aureus infection as the cause of diseases classified elsewhere; Z79.2 Long term (current) use of antibiotics

== ENCOUNTER 2020-06-09 19:33 | Emergency (ER) | payer OTHER ==
[~2020-06-09] VITALS: Ht 157.5 cm; Wt 61.4 kg
[2020-06-09 19:36] VITALS: Ht 157.5 cm; Wt 61.4 kg
[2020-06-09 22:36] VITALS: BP 130/87
== END 2020-06-09 22:36 | disposition home or self-care (01) ==
LOC: D.ER 19:33
DX: S51.812A Laceration without foreign body of left forearm, initial encounter (principal); F32.9 Major depressive disorder, single episode, unspecified; W01.198A Fall on same level from slipping, tripping and stumbling with subsequent striking against other object, initial encounter; Y93.9 Activity, unspecified; Y92.9 Unspecified place or not applicable

== ENCOUNTER 2020-06-10 13:28 | Observation (INO) | payer OTHER ==
[2020-06-10 13:31] VITALS: Ht 157.5 cm
[2020-06-10 14:11] LABS: HEMOGLOBIN 12.1 g/dL (12-16); LYMPHOCYTES 11.1 % (15-50); MCH 28.1 pg (26.0-34.0); MCHC 33.6 g/dL (31.0-37.0); MCV 83.7 fL (80.0-100.0); MEAN PLATELET VOLUME 8.9 fL (7.4-10.4); NEUTROPHILS 86.3 % (40-80); PLATELET COUNT 366 10x3/uL (130-400); WBC 16.3 10x3/uL (4.8-10.8)
[2020-06-10 14:25] LABS: BILIRUBIN - TOTAL 0.69 mg/dL (0.2-1.3); CALCIUM 9.1 mg/dL (8.5-10.1); CARBON DIOXIDE 22.3 mmol/L (21.0-32.0); PROTEIN - SERUM 7.3 g/dL (6.4-8.2)
[2020-06-10 14:30] LABS: ANION GAP 15.4 mmol/L (8-16); POTASSIUM - SERUM 2.7 mmol/L (3.5-5.1)
--- NOTE | 2020-06-10 14:30 | NUR ---
PT REFUSING IV START AND STRAIGHT CATH. DR FRANCO NOTIFIED.
[2020-06-10 16:00] VITALS: BP 113/74
[2020-06-10 16:52] LABS: CREATINE KINASE 227 UL (21-215)
[2020-06-10 16:57] LABS: CKMB 2.5 U/L (0.0-3.6)
[2020-06-10 18:54] VITALS: BP 122/60
--- NOTE | 2020-06-10 20:02 | NUR ---
TO ROOM TO DO EKG AND START IV. PATIENT REFUSES. DR SOTELO CAME TO ROOM TO SPEAK TO PATIENT. PATIENT CONTINUES TO REFUSE EKG AND IV- REFUSES ADMISSION UNLESS DR CHAMBERLAIN COMES TO ED TO SEE HER.
[2020-06-10 20:28] VITALS: BP 128/60
--- NOTE | 2020-06-10 20:38 | NUR ---
TO ROOM TO DRESS WOUND RIGHT ARM. REFUSING ALL CARE.
--- NOTE | 2020-06-10 21:52 | NUR ---
SPOKE WITH CHRISTA KELLY APN. SHE IS AWARE PATIENT IS REFUSING TREATMENT.
--- NOTE | 2020-06-10 23:00 | NUR ---
PATIENT RESTING WITH EYES CLOSED. RESP DEEP AND REGULAR. HAS REMOVED CM.
[2020-06-11 02:44] VITALS: BP 116/75
--- NOTE | 2020-06-11 04:45 | NUR ---
AWAKENS EASILY. EKG OBTAINED. PT TOOK KEFLEX THAT WAS ORDERED LAST PM. REFUSED PO POTASSIUM. STATES "NO ONE EVER HARRIS MY POTASSIUM"- EXPLAINED TO PATIENT THAT IT WAS DRAWN UPON HER ARRIVAL. PT CON'T TO REFULSE PO POTASSIUM. ASKED IF I COULD AT LEAST START HER IV- STATES "I DON'T NEED AN IV" - PT DID LET ME ATTEMPT FINALLY 1 IV STICK - WAS ABLE TO DRAW ENOUGH BLOOD FOR A BMP. IV ITSELF BLEW. SODA TO PATIENT- STATES "I JUST WANT TO GO BACK TO SLEEP"
[2020-06-11 05:27] LABS: ANION GAP 17.4 mmol/L (8-16); CALCIUM 8.9 mg/dL (8.5-10.1); CARBON DIOXIDE 21.4 mmol/L (21.0-32.0); CREATININE - SERUM 1.1 mg/dL (0.6-1.3); POTASSIUM - SERUM 4.8 mmol/L (3.5-5.1)
[2020-06-11 06:45] LABS: T4 THYROXIN - FREE 0.79 ng/dL (0.76-1.46); T4 THYROXINE 6.4 ug/dL (4.7-13.3)
--- NOTE | 2020-06-11 07:30 | NUR ---
PATIENT GIVEN BREAKFAST TRAY
--- NOTE | 2020-06-11 07:31 | NUR ---
RECEIVED REPORT FROM FOZIA JIMÉNEZ. PT LAYING IN BED. RESPIRATIONS ARE EVEN AND UNLABORED. NO DISTRESS NOTED. PT REFUSING IV AT THIS TIME.
--- NOTE | 2020-06-11 07:45 | NUR ---
PT STATES THAT SHE WILL NOT TAKE SYNTHROID UNLESS IT IS GENERIC LEVOTHYROXINE ONLY. CONTACTED PHARMACY, AND THEY ARE SENDING MEDICATION.
--- NOTE | 2020-06-11 08:17 | NUR ---
PT REFUSING SYNTHROID AT THIS TIME. STATES "GIVE ME A COUPLE OF HOURS, YOU HAVE OTHER PATIENTS GO TAKE CARE OF THEM, I AM NOT TAKING ANYTHING AT THIS MOMENT".
--- NOTE | 2020-06-11 08:18 | NUR ---
PT REFUSED IV START AT THIS TIME. STATES "GIVE ME A FEW HOURS"
--- NOTE | 2020-06-11 09:24 | NUR ---
PT REFUSING IV AT THIS TIME.
--- NOTE | 2020-06-11 09:24 | NUR ---
PT REFUSED PROTONIX STATES "I AM NOT TAKING THAT I HAVEN'T TAKEN IT IN A LONG TIME"
--- NOTE | 2020-06-11 09:27 | NUR ---
PT REFUSED LEVOTHYROXINE STATES "IF YOU ARE GOING TO GIVE ME THIS GIVE ME THE CORRECT DOSE". ADVISED PT THAT THIS WAS THE ORDERED DOSE FROM THE PROVIDER.
--- NOTE | 2020-06-11 11:33 | NUR ---
PT STATES THAT SHE WILL NOT ALLOW TREATMENT UNTIL HER EMERGENCY CONTACT IS WITH HER AT BEDSIDE.
--- NOTE | 2020-06-11 11:34 | NUR ---
ATTEMPTED TO CALL EMERGENCY CONTACT NO ANSWER.
--- NOTE | 2020-06-11 11:35 | NUR ---
PT AT NURSES DESK USING PHONE AT THIS TIME.
--- NOTE | 2020-06-11 11:40 | NUR ---
PT REQUESTING TO BE DISCHARGED AND WILL NOT ALLOW TREATMENT FROM ED STAFF. NOTIFIED [employer]LEMENTARY ESL TEACHER AND EDP DR. FRANCO. PT PROVIDED LUNCH TRAY. AWAITING ORDERS FOR DISCHARGE.
--- NOTE | 2020-06-11 13:06 | NUR ---
DR. BRYAN AT BEDSIDE.
[2020-06-11] MEDS ORDERED: KEFLEX500 MG PO (13:23)
[2020-06-11] MEDS ORDERED: SYNTHROID50 MCG PO (13:23)
--- NOTE | 2020-06-11 13:39 | NUR ---
PT REFUSED TO SIGN DISCHARGE PAPERWORK. PT REFUSED DISCHARGE VITAL SIGNS. AMBULATED OUT OF ED WITHOUT DIFFICULTY AT THIS TIME.
== END 2020-06-11 13:40 | disposition home or self-care (01) ==
LOC: D.ER 13:28 → D.EDHOLD 19:58 → OBSVTIME 19:58 → D.EDHOLD 22:13 → D.ER 22:13 → D.EDHOLD 06-11 13:40 → D.ER 06-11 13:40
PROVIDERS: Emergency Medicine; Family Medicine; ADMIT Family Medicine; ATTEND Family Medicine
DX: E03.9 Hypothyroidism, unspecified (principal); E87.6 Hypokalemia; E87.1 Hypo-osmolality and hyponatremia; N17.9 Acute kidney failure, unspecified; K86.1 Other chronic pancreatitis; I10 Essential (primary) hypertension; K21.9 Gastro-esophageal reflux disease without esophagitis; F41.8 Other specified anxiety disorders; F43.10 Post-traumatic stress disorder, unspecified; G89.29 Other chronic pain; S41.112A Laceration without foreign body of left upper arm, initial encounter